=== PATIENT | male | born 1940 | race Caucasian/White ===

== ENCOUNTER → 2024-04-01 11:04 | Outpatient (BNVA) | payer MEDICARE, BC, SELFPAY | PROVIDERS: Visit Provider Orthopaedic Surgery | DX: M17.11 Unilateral primary osteoarthritis, right knee (principal) | CPT/HCPCS: 20610; 99212; J2003; J7318 ==

== ENCOUNTER 2024-07-01 11:00 | Outpatient (AMB) | payer MEDICARE, SELFPAY ==
--- NOTE | 2024-07-01 11:07 | MHC.OFFVIS ---
Vital Signs 07/01/24 11:09 Height 5 ft 8 in Weight 205 lb BMI 31.2 Intake Visit Reasons: Right knee pain Intake Note: Say is an 84 year old male who presents with complaints of progressively worsening right knee pain. He describes his pain as sharp in nature. He has had both cortisone injections and viscosupplementation injections given into his right knee which gave him temporary relief. He did undergo left total knee replacement surgery several years ago. He wishes to hold off on right total knee replacement surgery for as long as possible. He has tried Tylenol and anti-inflammatory medicines which gave him minimal relief. At this point his right knee pain is interfering with his activities of daily living and his ability to sleep well through the night. Allergies No Known Allergies Allergy (Verified 04/08/24 10:39) Medication List - Last Reconciled 07/01/24 by Marcos Galdamez MD acetaminophen (Tylenol) 325 mg PO QID PRN amlodipine 10 mg PO DAILY latanoprost 0.005% drps ophthalmic (eye) lisinopril 40 mg PO DAILY rosuvastatin 40 mg PO DAILY sertraline 50 mg PO DAILY [facility] Surgical History (Updated 04/08/24 @ 10:39 by Briana Garcia) Hx of left knee surgery (~2018) Social History (System 04/08/24 @ 10:39 by Briana Garcia) Patient Tobacco Use Status: Never used Tobacco Current occupational status: retired Physical Exam Vital Signs: BMI result Body Mass Index 31.2 Const Other: Well-nourished well-developed very friendly male awake alert and oriented x3 in no acute distress Extrem Other: Bilateral lower extremity examination shows good capillary refill, no skin lesions noted, normal sensation light touch Right knee examination shows a minimal effusion, palpable crepitus with range of motion, pain with range of motion, no instability Office Procedures AMB Joint Injection/Aspiration Joint Injection/Aspiration Primary Site: right knee Prep: site was prepped using aseptic technique Injected: 40 mg of, DepoMedrol and 1% plain lidocaine Procedure: The patient tolerated the procedure well Coding 17584 - Large joint Procedure code (CPT) selection complete Results Reviewed Results Reviewed: X-rays of the patient's right knee taken previously show joint space narrowing, subchondral sclerosis, no acute bony abnormalities Assessment & Plan Assessment & Plan (1) Osteoarthritis of right knee: Code(s): M17.11 - Unilateral primary osteoarthritis, right knee Category: Medical (2) Right knee pain: Code(s): M25.561 - Pain in right knee Category: Medical Plan Mr. Schulz presents with right knee pain due to osteoarthritis. The risks and benefits of a right knee cortisone injection were discussed at length with the patient. The patient wished to proceed. He tolerated the injection well. If he does not get lasting relief from the cortisone injection therapy I will see whether or not his insurance company will cover a another viscosupplementation injection such as Durolane. I will see him back once the injection is available. Feel free to call me at any time should questions regarding his orthopedic management arise. I spent 21 minutes in reviewing the patient's records and imaging studies, seeing the patient and documenting in the medical record. Orders: Orders AMB Joint Injection/Aspiration Today M17.11 - Unilateral primary osteoarthritis, right knee Coding Level of Care Code Est Pt Level 3 (56683) Complex EM visit Add On G2211 Diagnoses Osteoarthritis of right knee M17.11 Right knee pain M25.561 CPT Codes Coding - 55097 Large joint: 07426 - Large joint ([id number])
[2024-07-01 11:09] VITALS: BMI 31.2
--- OUTSIDE RECORDS SUMMARY | 2024-07-01 11:51 | XMS_ITS | Encounter Summary ---
Author Organization [facility] Address [address] [place] [address] Care Team Providers Care Instructional Support Technician Name Role Phone Unavailable Primary Care Provider Unavailabl e Encounter Details Date Type Department Care Team (Latest Contact Info) Description 05/11/2020 Lab Requisition [facility] [address] Through [address] [place] [address] [address] [place] [address] Adalberto Saucedo MD [address] [place], [place] [id number] Encounter for laboratory testing for COVID-19 virus Social History Tobacco Use Types Packs/Day Years Used Date Smoking Tobacco: Never Assessed Sex and Gender Information Value Date Recorded Sex Assigned at Not on file Legal Sex Male 11:43 AM EDT Gender Identity Not on file Sexual Orientation Not on file documented as of this encounter Plan of Treatment Not on file documented as of this encounter Procedures Procedure Name Priority Date/Time Associated Diagnosis Comments COVID-19 (SARS-COV-2) LILO Routine 05/11/2020 10:52 AM EDT Encounter for laboratory testing for COVID-19 virus [ICD-10-CM] documented in this encounter Results * COVID-19 (SARS-CoV-2), LILO (In-House) (05/11/2020 10:52 AM EDT) SARS CoV 2 Not Detected Not Detected 05/11/2020 2:27 PM EDT [facility] Comment: Negative results do not preclude SARS-CoV-2 (COVID-19)infection and should not be used as the sole basis for treatment or other patient management decisions. The SARS-CoV-2 (Covid-19) Nucleic Acid Amplification Assay is limited to laboratories certified under the Clinical Laboratory Improvement Amendments of 1988 (CLIA), 42 U.S.C. 263a, to perform high complexity tests. Nucleic acid amplication tests include RT-PCR and TMA. This assay has not been FDA cleared or approved, however, this assay has been authorized by the Food and Drug Administration (FDA) under an Emergency Use Authorization (EUA). ??Validation was completed and performance characteristics established by [facility] as per the FDA and CLIA requirement for this EUA. The Aptima SARS-CoV-2 assay Letter of Authorization, along with the authorized Fact Sheet for Healthcare Providers, the authorized Fact Sheet for Patients, and authorized labeling are available on the FDA website: https://www.fda.gov/medical-devices/fceqfxfrm-fhevzzamje-ddtwesn-devices/emergen -us y-ouvtagmhbcfmfi-rxivpmo-devices. Performed at [facility], [place], [place] ??[place] License [id number] ??CLIA [id number] Source Nasopharyngeal 05/11/2020 2:27 PM EDT [facility] Comment:Performed at [facility], [place], [place] license No. [id number] CLIA No. [id number] Microbiology Nasopharyngeal swab / Unknown 05/11/2020 10:52 AM EDT 05/11/2020 10:52 AM EDT us Adalberto Saucedo MD MICROBIOLOGY - GENERAL ORDER KAMINI Final Result [facility] [address] [place] [address] documented in this encounter Visit Diagnoses Diagnosis Encounter for laboratory testing for COVID-19 virus documented in this encounter
== END 2024-07-01 11:36 | disposition home or self-care (01) ==
LOC: HO.HOS 11:00
PROVIDERS: Visit Provider Orthopaedic Surgery
DX: M17.11 Unilateral primary osteoarthritis, right knee (principal); M25.561 Pain in right knee
CPT/HCPCS: 20610; 99213

== ENCOUNTER → 2024-07-01 11:00 | Outpatient (BNVA) | payer MEDICARE, SELFPAY | PROVIDERS: Visit Provider Orthopaedic Surgery | DX: M17.11 Unilateral primary osteoarthritis, right knee (principal); Z96.652 Presence of left artificial knee joint | CPT/HCPCS: 20610; 99212; J1010; J2003 ==

== ENCOUNTER 2024-09-10 09:20 | Outpatient (AMB) | payer MEDICARE, SELFPAY ==
--- NOTE | 2024-09-10 09:28 | A.OFFVIS_ITS ---
Vital Signs 09/10/24 09:38 Height 5 ft 8 in BP 140/70 H Blood Pressure Location Rt brachial Position Sitting Pulse 64 Pulse Source Pulse Oximeter Pulse Oximetry (%) 98 Oxygen Delivery Method Room Air Intake Visit Reasons: ENP - Tremors Intake Note: NPV referred by PCP for tremors Shear Grinder Operator Required: No Accompanied by: Spouse Allergies atorvastatin Allergy (Mild, Verified 09/10/24 09:37) Abdominal Pain calcium Allergy (Mild, Verified 09/10/24 09:37) Abdominal Pain nortriptyline Allergy (Mild, Verified 09/10/24 09:37) Insomnia rosuvastatin Allergy (Mild, Verified 09/10/24 09:37) Abdominal Pain HPI Comments Details: 84y/o Right handed male comes for evaluation of tremors He has h/o restless legs for many years but the hand tremors L>R started about 1 year ago . The tremors are when he tries to sleep . He has to get up and walk it out . No tremors during daytime No neck pain or back pain . He has h/o vertigo since 2005 . 2 weeks ago he had another episode of vertigo - started meclizine and it resolved. He had a fall related to vertigo. No change in speech , denies drooling , no difficulty with fork and knife, no difficulty dressing , bathing etc. No h/o head injury No exposure to pesticides or antipsychotics No fh/o tremors [facility] Medical History (Updated 09/10/24 @ 10:35 by Yamila Gupta MD) Coarse tremors Restless legs syndrome (RLS) RLS (restless legs syndrome) Glaucoma Benign colon polyp Herpes zoster History of varicella as a child High blood pressure High cholesterol Surgical History History of melanoma excision H/O inguinal hernia repair H/O prostate biopsy History of cervical spinal surgery Hx of colonoscopy Hx of left knee surgery (~2018) Social History Patient Tobacco Use Status: Never used Tobacco Current occupational status: retired Physical Exam Vital Signs: Last Vital Signs Pulse 64 09/10/24 09:38 BP 140/70 H 09/10/24 09:38 Pulse Ox 98 09/10/24 09:38 Oxygen Delivery Method Room Air 09/10/24 09:38 Const General: cooperative, healthy appearing, comfortable and no acute distress Nutritional Appearance: overweight Orientation/consciousness: patient oriented x3 Eyes Pupils: Equal, round and reactive pupils present Neuro Other: No tremors Mild teofilo cog wheel rigidity Normal FFM and foot taps Gait- normal stride, mild stoop, good turning good arm swings Good facial expression and blink Voice normal General: patient oriented x3, tone normal, moves all extremities and no focal motor deficits Cranial nerves: Yes Equal, round and reactive pupils present, Yes Bilaterally intact EOM present, Yes Nystagmus not present, Yes Normal facial strength present, Yes Midline tongue present, Yes Symmetric palate elevation present and Yes Ability to bilaterally elevate shoulders present Cognition (Neuro): normal cognition Motor exam (neuro): 5/5 motor strength present throughout and Normal motor muscle tone present throughout Deep tendon reflexes (DTR's): Right triceps reflex intensity grade: 2+, Left triceps reflex intensity grade: 2+, Rt Biceps (C5, C6): 2+, Left biceps reflex intensity grade: 2+, Right brachioradialis reflex intensity grade: 2+, Left brachioradialis reflex intensity grade: 2+, Right patellar reflex intensity grade: 2+ and Left patellar reflex intensity grade: 2+ Coordination: dqoanr-af-stad test normal Assessment & Plan Assessment & Plan (1) Coarse tremors: Comment: present only when he is in bed - resolves with walking ? RLS Code(s): G25.2 - Other specified forms of tremor Category: Medical (2) Restless legs syndrome (RLS): Code(s): - Restless legs syndrome Category: Medical Plan I will check hsi MRI brain from [place] check Ferritin CBC CMP Vit D Vit B 12 etc Will consider gabapentin if the tremors does not resolve and affects his sleep No evidence of parkinsons on todays exam Orders: Orders Vitamin B12 and Folate Today - Restless legs syndrome Ferritin Today - Restless legs syndrome Erythrocyte Sedimentation Rate Today - Restless legs syndrome TSH reflex Free T4 Today - Restless legs syndrome Vitamin D 25-OH (D2 and D3) Today - Restless legs syndrome Comprehensive Met. Panel Today - Restless legs syndrome Complete Blood Count Auto Diff Today - Restless legs syndrome Coding Level of Care Code New Pt Level 4 (18380) Complex EM visit Add On G2211 Diagnoses Coarse tremors G25.2 Restless legs syndrome (RLS) G25.81
[2024-09-10 09:38] VITALS: BP 140/70; PULSE 64; O2SAT 98
--- OUTSIDE RECORDS SUMMARY | 2024-09-10 09:39 | XMS_ITS | Encounter Summary ---
Author Organization [facility] Address [address] [place] [address] Care Team Providers Care Gas Main And Line Fitter Name Role Phone Unavailable Primary Care Provider Unavailabl e Encounter Details Date Type Department Care Team (Latest Contact Info) Description [facility] [address] [place] [address] [address] [place] [address] Adalberto Saucedo MD [address] [place], [place] [phone] Encounter for laboratory testing for COVID-19 virus [...] Detected Not Detected 05/11/2020 2:27 PM EDT [facility] Comment: Negative results do [...] (FDA) under an Emergency Use Authorization (EUA). Validation was completed and performance characteristics established by [facility] as per the FDA and CLIA requirement for this EUA. The Aptima SARS-CoV-2 assay Letter of Authorization, along with the authorized Fact Sheet for Healthcare Providers, the authorized Fact Sheet for Patients, and authorized labeling are available on the FDA website: https://www.fda.gov/medical-devices/twpjwpdzb-unbrivgkof-avvsxbn-devices/emergen -us b-amnughxbnbgqmd-tcecwwp-devices. Performed at [facility], [place], [place] License 0385 CLIA [id number] Source Nasopharyngeal 05/11/2020 2:27 PM EDT [facility] Comment:Performed at [facility], [place] license No. [id number] CLIA No. [id number] Microbiology Nasopharyngeal swab / Unknown 05/11/2020 10:52 AM EDT 05/11/2020 10:52 AM EDT us Adalberto Saucedo MD MICROBIOLOGY - GENERAL ORDER KAMINI Final Result [facility] [address] [place] [address] documented in this encounter Visit Diagnoses Diagnosis Encounter for laboratory testing for COVID-19 virus documented in this encounter
--- OUTSIDE RECORDS SUMMARY | 2024-09-10 09:42 | XMS_ITS | Clinical Summary ---
Author Organization [facility] Address [address] [facility] [place] [address] Phone Care Team Providers Care Macerator Operator Name Role Phone JanaydaniaKelsey Grissom DO Primary Care Pro vider Allergies No known active allergies Medications sertraline (ZOLOFT) 50 mg tablet Take 1 tablet (50 mg total) by mouth 1 (one) time each day. Active lisinopril (PRINIVIL,ZEST RIL) 40 mg tablet Take 1 tablet (40 mg total) by mouth 1 (one) time each day. Active amLODIPine (NORVASC) 10 mg tablet Take by mouth 1 (one) time each day. Active albuterol HFA (PROAIR HFA ; PROVENTIL HFA ; VENTOLIN HFA) 90 mcg/actuation inhaler Inhale 2 puffs by mouth every 6 (six) hours if needed for wheezing. Active rosuvastatin (CRESTOR) 40 mg tablet Take 1 tablet (40 mg total) by mouth 1 (one) time each day. Active latanoprost (XALATAN) 0.005 % ophthalmic solution Administer 1 drop into both eyes at bedtime. at bedtime 5 Active cholecalcifero l (VITAMIN D-3) 25 mcg (1,000 unit) tablet Take 1 tablet (1,000 Units total) by mouth 1 (one) time each day. 08/27/19 25 Discontinu ed(Discont inued by another clinician) Active Problems Problem Noted Date Diagnosed Date SOB (shortness of breath) 08/26/2024 Assessment & Plan (08/26/2024 11:31 AM EDT): Likely caused by COPD. Given the nondiagnostic stress echo 3 years ago and risk factors, will schedule nuclear perfusion stress test, either by exercise or regadenoson. Orders: Exercise nuclear stress test with myocardial perfusion; Future Dizziness 08/26/2024 Assessment & Plan (08/26/2024 11:31 AM EDT): Likely from dehydration. Symptom has improved with drinking more fluid. Suggest him to check blood pressure and pulse with recurrent symptoms. Aortic valve stenosis 03/10/2024 Assessment & Plan (08/26/2024 11:31 AM EDT): Aortic stenosis was mild. Will repeat echocardiogram in a year. Orders: ECG 12 lead Assessment & Plan (03/10/2024 1:45 PM EST): The aortic valve stenosis is in mild range only. Will continue monitor this. Primary hypertension 03/10/2024 Assessment & Plan (03/10/2024 1:49 PM EST): Well-controlled. Hyperlipidemia 03/10/2024 Assessment & Plan (03/10/2024 1:50 PM EST): He is on high-dose statin. Encounters Date Type Department Care Team Description 09/03/2024 9:49 AM EDT - 09/03/2024 11:59 PM EDT Hospital Encounter [facility] MRI [address] [place] [id number] Dizziness and giddiness Discharge Disposition: Home or Self Care 08/26/2024 10:50 AM EDT Office Visit [facility] [address] [place] [phone] Reggie Cole MD Nonrheumatic aortic valve stenosis (Primary Dx); SOB (shortness of breath); Dizziness from Last 3 Months Social History Tobacco Use Types Packs/Day Years Used Date Smoking Tobacco: Former Cigarettes Smokeless Tobacco: Never Tobacco Cessation:Counseling Given: Not Answered Alcohol Use Standard Drinks/Week Comments Yes 0 (1 standard drink = 0.6 oz pur e alcohol) wine Sex and Gender Information Value Date Recorded Sex Assigned at Male 03/26/2024 10:17 AM EST Legal Sex Male 11:14 PM EST Gender Identity Male 03/26/2024 10:17 AM EST Sexual Orientation Straight 03/26/2024 10 :17 AM EST Obstetrics History Last Filed Vital Signs Vital Sign Reading Time Taken Comments Blood Pressure 130/74 08/26/2024 10:43 AM EDT Pulse 73 08/26/2024 10:43 AM EDT Temperature - - Respiratory Rate - - Oxygen Saturation 96% 08/26/2024 10:43 AM EDT Inhaled Oxygen Concentration - - Weight 87.5 kg (193 lb) 08/26/2024 10:43 AM EDT Height 175.3 cm (5' 9 ) 08/26/2024 10:43 AM EDT Body Mass Index 28.5 08/26/2024 10:43 AM EDT Plan of Treatment Upcoming Encounters Date Type Department Care Team (Late st Contact Info) Description 09/17/2024 9:00 AM EDT Ancillary Procedure [facility] [address] [facility] [address] [place] [address] Health Maintenance Due Date Last Done Comments DTaP,Tdap,and Td Vaccines (1 - Tdap) 1959 Pneumococcal Vaccine: 50+ Years (1 of 1 - PCV) 02/21/1992 RSV Immunization Adult Patients (1 - 1-dose 75+ series) 2017 Cholesterol Screening (Lipid Panel) 01/08/2022 Falls Risk Assessment 01/08/2022 Medicare Annual Wellness Visit 01/08/2022 Social Influencers of Health Screening 01/08/2022 COVID-19 Vaccine (4 - 2023-2 5 season) 2023 03/01/2021, 04/04/2020, 03/13/2020 Depression Screening 02/06/2024 Hypertension/CHF/CAD Annual BMP Blood Test 03/10/2024 Influenza Vaccine (#1) 2024 3, 12/07/2020 Zoster Vaccines Completed 08/13/2023, 05/21/2023 HIB Vaccines Aged Out No longer eligi ble based on patient's age to complete this topic HPV Vaccines Aged Out No longer eligi ble based on patient's age to complete this topic Hepatitis A Vaccines Aged Out No long er eligible based on patient's age to complete this topic Hepatitis B Vaccines Aged Out No long er eligible based on patient's age to complete this topic IPV Vaccines Aged Out No longer eligi ble based on patient's age to complete this topic MMR Vaccines Aged Out No longer eligi ble based on patient's age to complete this topic Meningococcal ACWY Vaccine Aged Out N o longer eligible based on patient's age to complete this topic Meningococcal B Vaccine Aged Out No l onger eligible based on patient's age to complete this topic RSV Immunization Patients Under 20 months Aged Out No longer eligible b ased on patient's age to complete this topic Varicella Vaccines Aged Out No longer eligible based on patient's age to complete this topic Procedures Procedure Name Priority Date/Time Associated Diagnosis Comments MR BRAIN WO AND W CONTRAST Routine 09/03/2024 11:46 AM EDT Dizziness and giddiness ECG 12-LEAD Routine 08/26/2024 10:50 AM EDT Nonrheumatic aortic valve stenosis from Last 3 Months Results * MR Brain wo and w Contrast (09/03/2024 11:46 AM EDT) Anatomical Region Laterality Modality Head and Neck Magnetic Resonan ce 09/03/2024 2:20 PM EDT Impressions 09/03/2024 3:32 PM EDT No acute findings or abnormal intracranial enhancement. Moderate chronic small vessel ischemic change throughout the supratentorial and pontine white matter. Mild diffuse cerebral volume loss. -------- FINAL REPORT -------- Dictated By: ELIO AGUDELO Dictated Date: 09/03/2024 14:20 ET Assigned Physician: ELIO AGUDELO Reviewed and Electronically Signed By: ELIO AGUDELO Signed Date: 09/03/2024 15:32 ET Workstation ID: [id number] Transcribed By: Self Edit Transcribed Date: 09/03/2024 14:20 ET Narrative 09/03/2024 3:32 PM EDT PROCEDURE: Brain MRI INDICATION: Dizziness TECHNIQUE: Multiplanar, multisequence MRI of the brain without and with contrast. 18 mL Dotarem injected intravenously without complication from a 20 mL vial with the remainder discarded. COMPARISON: No priors available. FINDINGS: No acute infarct, mass effect, or intracranial hemorrhage. Moderate chronic small vessel ischemic changes seen throughout the supratentorial and pontine white matter. Mild diffuse cerebral volume loss with prominence of ventricles, sulci, and cisterns. No hydrocephalus. Sella and foramen magnum are normal. Major intracranial arterial flow voids are within normal limits. Major dural venous sinuses enhance normally with contrast. No abnormal intracranial enhancement or susceptibility artifact. Scattered mucosal thickening seen throughout the sinuses. Mastoid air cells are clear. Bilateral lens implants. Orbits and extra cranial soft tissues are otherwise within normal limits. Calvarium is normal. Procedure Note Elio Agudelo MD - 09/03/2024 PROCEDURE: Brain MRI INDICATION: Dizziness TECHNIQUE: Multiplanar, multisequence MRI of the brain without and withcontrast. 18 mL Dotarem injected intravenously without complication froma 20 mL vial with the remainder discarded. COMPARISON: No priors available. FINDINGS: No acute infarct, mass effect, or intracranial hemorrhage. Moderate chronic small vessel ischemic changes seen throughout thesupratentorial and pontine white matter. Mild diffuse cerebral volume loss with prominence of ventricles, sulci,and cisterns. No hydrocephalus. Sella and foramen magnum are normal. Major intracranial arterial flow voids are within normal limits. Majordural venous sinuses enhance normally with contrast. No abnormal intracranial enhancement or susceptibility artifact. Scattered mucosal thickening seen throughout the sinuses. Mastoid aircells are clear. Bilateral lens implants. Orbits and extra cranial soft tissues areotherwise within normal limits. Calvarium is normal. IMPRESSION: No acute findings or abnormal intracranial enhancement. Moderate chronic small vessel ischemic change throughout thesupratentorial and pontine white matter. Mild diffuse cerebral volume loss. -------- FINAL REPORT -------- Dictated By: ELIO AGUDELO Dictated Date: 09/03/2024 14:20 ET Assigned Physician: ELIO AGUDELO Reviewed and Electronically Signed By: ELIO AGUDELO Signed Date: 09/03/2024 15:32 ET Workstation ID: [id number] Transcribed By: Self Edit Transcribed Date: 09/03/2024 14:20 ET us Kelsey Marcin DO IMG MRI PROCEDURE S Final Result * ECG 12 lead (08/26/2024 10:50 AM EDT) Ventricular Rate ECG 73 BPM GEMUSE Atrial Rate 73 BPM GEMUSE P-R Interval 186 ms GEMUSE QRS Duration 106 ms GEMUSE Q-T Interval 398 ms GEMUSE QTc 438 ms GEMUSE P Wave [place] 74 degrees GEMUSE R [place] -16 degrees GEMUSE T [place] 83 degrees GEMUSE ECG Interpretation Normal sinus rhythm Non-specific intra-ventric ular conduction block No previous ECGs available Confirmed by Sebas COLE YUFENG ([id number]) on 08/26/2024 11:28:01 AM GEMUSE 08/26/2024 10:5 0 AM EDT 08/26/2024 11:28 AM EDT us Reggie Cole MD ECG ORDERABLES Final Result GEMUSE from Last 3 Months Insurance MEDICARE [facility] Care Teams Macerator Operator Relationship Specialty Start Date End Date Kelsey Burch DO [address] [address] PCP - General Internal Medicine 02/28/24
--- OUTSIDE RECORDS SUMMARY | 2024-09-10 09:42 | XMS_ITS | Encounter Summary ---
Author Organization [facility] Address [address] [facility] [address] [place] [phone] Phone Care Team Providers Care Planning Technician Name Role Phone Unknown, Unknown Primary Care Provider Grant Lyn DO Primary Care Provider [phone] Encounter Details Date Type Department Care Team (Late st Contact Info) Description 07/09/2019 Procedure Pass BWF Periop 6th floor [address] [place] [address] Social History Tobacco Use Types Packs/Day Years Used Date Smoking Tobacco: Former Smokeless Tobacco: Never Comments:Quit 22 years ago p er pt Sex and Gender Information Value Date Recorded Sex Assigned at Male 08/02/2019 8:38 AM EDT Legal Sex Male 8:52 AM EST Gender Identity Male 08/02/2019 8:38 AM EDT Sexual Orientation Straight 08/02/2019 8 :38 AM EDT documented as of this encounter Plan of Treatment Not on file documented as of this encounter Visit Diagnoses Not on filedocumented in this encounter Care Teams Planning Technician Relationship Specialty Start Date End Date Unknown, Unknown, PCP - General 04/29/19 08/06/19 Grant Coronado DO [address] [place] [id number] PCP - General Internal Medicine 08/07/19 documented as of this encounter Additional Source Comments The information contained in this document represents components of the legal health record. It is not the complete legal health record.[facility]
== END 2024-09-10 10:23 | disposition home or self-care (01) ==
LOC: HO.HSMS 09:20
PROVIDERS: Visit Provider Psychiatry & Neurology Neurology
DX: G25.2 Other specified forms of tremor (principal); G25.81 Restless legs syndrome
CPT/HCPCS: 99204; G2211

== ENCOUNTER → 2024-09-10 09:20 | Outpatient (BNVA) | payer MEDICARE, SELFPAY | PROVIDERS: Visit Provider Psychiatry & Neurology Neurology | DX: G25.2 Other specified forms of tremor (principal); G25.81 Restless legs syndrome | CPT/HCPCS: 99202 ==

== ENCOUNTER 2024-10-01 10:58 | Outpatient (AMB) | payer MEDICARE, SELFPAY ==
--- OUTSIDE RECORDS SUMMARY | 2024-09-30 14:00 | XMS_ITS | Encounter Summary ---
Author Organization [facility] Address [address] [place] [address] Care Team Providers Care Industrial Gas Fitter Helper Name Role Phone ViktoriaKelsey Grissom DO Primary Care Pro vider Reason for Visit * Reason Comments Follow-up Encounter Details Date Type Department Care Team (Latest Contact Info) Description 09/30/2024 2:00 PM EDT Office Visit [facility] [address] [place] [address] Reggie Cole MD [address] [place] [address] [place] [address] Coronary artery disease of [place] artery of [place] heart with stable angina pectoris (CMS/HCC V24) (Primary Dx); Nonrheumatic aortic valve stenosis; Primary hypertension; Hyperlipidemia, unspecified hyperlipidemia type Social History Tobacco Use Types Packs/Day Years Used Date Smoking Tobacco: Former Cigarettes Smokeless Tobacco: Never Alcohol Use Standard Drinks/Week Comments Yes 0 (1 standard drink = 0.6 oz pur e alcohol) wine Sex and Gender Information Value Date Recorded Sex Assigned at Male 03/26/2024 10:17 AM EST Legal Sex Male 11:14 PM EST Gender Identity Male 03/26/2024 10:17 AM EST Sexual Orientation Straight 03/26/2024 10 :17 AM EST documented as of this encounter Last Filed Vital Signs Vital Sign Reading Time Taken Comments Blood Pressure 126/84 09/30/2024 1:53 PM EDT Pulse 67 09/30/2024 1:53 PM EDT Temperature - - Respiratory Rate - - Oxygen Saturation 96% 09/30/2024 1:53 PM EDT Inhaled Oxygen Concentration - - Weight 91.5 kg (201 lb 12.8 oz) 09/30/2024 1:53 PM EDT Height 174 cm (5' 8.5 ) 09/30/2024 1:53 PM EDT Body Mass Index 30.24 09/30/2024 1:53 PM EDT documented in this encounter Ordered Prescriptions Prescription Sig Dispense Quantity Refills Last Filled Start Date End Date nitroglycerin (NITROSTAT) 0.[address] 1 tablet (0.4 mg total) under the tongue every 5 (five) minutes if needed for chest pain. May repeat dose every 5 minutes for up to 3 doses total. 25 tablet 09/30/2024 documented in this encounter Progress Notes * Reggie Cole MD - 09/30/2024 2:00 PM EDTAssociated Problem(s): Coronary artery disease of [place] artery of [place] heart with stable angina pectoris ([facility] V24) He has infrequent chest discomfort with walking upstairs. Perfusion images shows quite significant ischemia in LAD territory. I will propose to do a cardiac catheterization with possible PCI. I have reviewed the procedure with patient and his , risk and benefit. He will proceed with cath with potential PCI. * Reggie Cole MD - 09/30/2024 2:00 PM EDTAssociated Problem(s): Aortic valve stenosis Aortic valve stenosis was mild years ago. Will continue to monitor. * Reggie Cole MD - 09/30/2024 2:00 PM EDTAssociated Problem(s): Primary hypertension Well-controlled * Reggie Cole MD - 09/30/2024 2:00 PM EDTAssociated Problem(s): Hyperlipidemia Well-controlled. * Reggie Cole MD - 09/30/2024 2:00 PM EDT PCP: Kelsey Burch DO HPI: The patient is an 84-year-old male who presents for follow up of CAD with abnormal stress test. He is accompanied by his . He reports experiencing shortness of breath with overexertion, particularly when ascending stairs. This symptom has been present for approximately one year. He does not experience any chest pain. He maintains an active lifestyle, engaging in walking exercises during favorable weather conditions. Hehas been using an inhaler intermittently for the past year, which provides some relief. His pulmonary function test demonstrated moderate COPD. Echocardiogram from October 2023 demonstrated normal biventricular size and systolic function, mild aortic valve stenosis. He also had stress echo in [facility] cardiology office back to 2021 and the study was reported to be technically difficult. He underwent pharmacological nuclear stress test after last office visit and perfusion images demonstrate medium size, mostly reversible defect, in LAD territory, consistent with ischemia. Per his , he does have chest pressure with shortness of breath while walking upstairs. Per patient, the chest pressure was quite seldom. But he is also not very active due to the knee problem. Hehad no resting chest discomfort. ROS: All pertinent review of systems as stated in HPI otherwise reviewed and are negative. PAST MEDICAL HISTORY: Patient Active Problem List Diagnosis Date Noted SOB (shortness of breath) 08/26/2024 Dizziness 08/26/2024 Aortic valve stenosis 03/10/2024 Primary hypertension 03/10/2024 Hyperlipidemia 03/10/2024 ACTIVE MEDICATIONS: Outpatient Medications Marked as Taking for the 09/30/24 encounter (Office Visit) with Reggie Cole MD Medication Sig Dispense Refill albuterol HFA (PROAIR HFA ; PROVENTIL HFA ; VENTOLIN HFA) 90 mcg/actuation inhaler Inhale 2 puffs by mouth every 6 (six) hours if needed for wheezing. amLODIPine (NORVASC) 10 mg tablet Take by mouth 1 (one) time each day. aspirin 81 mg EC tablet Take 1 tablet (81 mg total) by mouth 1 (one) time each day. latanoprost (XALATAN) 0.005 % ophthalmic solution Administer 1 drop into both eyes at bedtime. at bedtime lisinopril (PRINIVIL,ZESTRIL) 40 mg tablet Take 1 tablet (40 mg total) by mouth 1 (one) time each day. rosuvastatin (CRESTOR) 40 mg tablet Take 1 tablet (40 mg total) by mouth 1 (one) time each day. sertraline (ZOLOFT) 50 mg tablet Take 1 tablet (50 mg total) by mouth 1 (one) time each day. ALLERGIES: No Known Allergies PHYSICAL EXAM: Vitals: 09/30/24 1353 BP: 126/84 Pulse: 67 SpO2: 96% Weight: 91.5 kg (201 lb 12.8 oz) Height: 1.74 m (68.5 ) Physical Exam APPEARANCE: Alert and in no acute distress EYES: PERRLA, conjunctiva and sclera normal. NECK: Neck supple, thyroid symmetric and of normal size HEART: RRR with normal S1 and S2, 2/6 systolic murmur at right upper sternal border, no gallops, noJVD appreciated LUNG: clear to auscultation in all robertson ABDOMEN: Bowel sounds normoactive, soft, non-tender, without organomegaly or palpable masses EXTREMITIES: Extremities warm and well perfused without clubbing, cyanosis, or edema NEURO: Awake, alert and oriented SKIN: Skin color, texture, turgor normal. No rashes or lesions. MUSCULOSKELETAL: Gait normal TESTING: IMPRESSION: No diagnosis found. ASSESSMENT/PLAN: Assessment & Plan Coronary artery disease of [place] artery of [place] heart with stable angina pectoris (CMS/HCC V24) He has infrequent chest discomfort with walking upstairs. Perfusion images shows quite significant ischemia in LAD territory. I will propose to do a cardiac catheterization with possible PCI. I have reviewed the procedure with patient and his , risk and benefit. He will proceed with cath with potential PCI. Nonrheumatic aortic valve stenosis Aortic valve stenosis was mild years ago. Will continue to monitor. Primary hypertension Well-controlled Hyperlipidemia, unspecified hyperlipidemia type Well-controlled. The [facility] team will continue to co-manage this patient following the plan of care as established by my initial visit and as per AHA guidelines for ongoing management and surveillance of CAD, aortic valve stenosis . This will include medication titration, initiation of appropriate medications and further titration, and diagnostic studies to manage this disease process. Thank you for allowing us to participate in the care of this patient. The patient will follow up with Cardiology post cardiac catheterization. CC: @PCP documented in this encounter Plan of Treatment Not on file documented as of this encounter Visit Diagnoses Diagnosis Coronary artery disease of [place] artery of [place] heart with stable angina pectoris ([facility] V24)- Primary Nonrheumatic aortic valve stenosis Primary hypertension Unspecified essential hypertension Hyperlipidemia, unspecified hyperlipidemia type documented in this encounter Historical Medications * This list may reflect changes made after this encounter. aspirin 81 mg EC tablet Take 1 tablet (81 mg total) by mouth 1 (one) time each day. added in this encounter Care Teams Industrial Gas Fitter Helper Relationship Specialty Start Date End Date Kelsey Burch DO [address] [id number] PCP - General Internal Medicine 02/28/24 documented as of this encounter
--- NOTE | 2024-10-01 11:14 | MHC.OFFVIS ---
Vital Signs 10/01/24 11:20 Height 5 ft 8 in Weight 199 lb BMI 30.3 Intake Visit Reasons: Right knee pain Intake Note: Say is a 84 year old male who presents with complaints of progressively worsening right knee pain. He describes his pain as sharp in nature. He has failed the last 3 months of conservative treatment which has included Tylenol, anti-inflammatory medicines, physical therapy exercises and a home exercise program. The patient has had cortisone injections in the past. The most recent cortisone injection gave him minimal relief. He has also had Durolane viscosupplementation injections which gave him good relief. He wishes to hold off on surgery if at all possible. Allergies atorvastatin Allergy (Mild, Verified 10/01/24 11:20) Abdominal Pain calcium Allergy (Mild, Verified 10/01/24 11:20) Abdominal Pain nortriptyline Allergy (Mild, Verified 10/01/24 11:20) Insomnia rosuvastatin Allergy (Mild, Verified 10/01/24 11:20) Abdominal Pain Medication List - Last Reconciled 10/01/24 by Marcos Galdamez MD acetaminophen (Tylenol) 325 mg PO QID PRN amlodipine 10 mg PO DAILY aspirin (Rommel Low Dose Aspirin) 81 mg PO DAILY latanoprost 0.005% drps ophthalmic (eye) lisinopril 40 mg PO DAILY rosuvastatin 40 mg PO DAILY sertraline 50 mg PO DAILY [facility] Medical History (Updated 09/10/24 @ 10:35 by Yamila Gupta MD) Coarse tremors Restless legs syndrome (RLS) RLS (restless legs syndrome) Glaucoma Benign colon polyp Herpes zoster History of varicella as a child High blood pressure High cholesterol Surgical History History of melanoma excision H/O inguinal hernia repair H/O prostate biopsy History of cervical spinal surgery Hx of colonoscopy Hx of left knee surgery (~2018) Social History Patient Tobacco Use Status: Never used Tobacco Current occupational status: retired Physical Exam Vital Signs: BMI result Body Mass Index 30.3 Const Other: Well-nourished well-developed very friendly male awake alert and oriented x3 in no acute distress Extrem Other: Right knee examination shows a minimal effusion, palpable crepitus with range of motion, pain with range of motion, no instability Results Reviewed Results Reviewed: X-rays of the patient's right knee taken previously show joint space narrowing, subchondral sclerosis, no acute bony abnormalities Assessment & Plan Assessment & Plan (1) Right knee pain: Code(s): M25.561 - Pain in right knee Category: Medical (2) Osteoarthritis of right knee: Code(s): M17.11 - Unilateral primary osteoarthritis, right knee Category: Medical Plan Mr. Schulz presents with right knee pain due to osteoarthritis. I had a lengthy discussion with the patient regarding the treatment options. He wishes to hold off on surgery if at all possible. I agree with this plan. I will see if the patient's insurance company will cover another Durolane viscosupplementation injection. I will see him back once the injection is available. Feel free to call me at any time should questions regarding his orthopedic management arise. I spent 21 minutes in reviewing the patient's records and imaging studies, seeing the patient and documenting in the medical record. Coding Level of Care Code Est Pt Level 3 (60587) Complex EM visit Add On G2211 Diagnoses Right knee pain M25.561 Osteoarthritis of right knee M17.11
[2024-10-01 11:20] VITALS: BMI 30.3
--- OUTSIDE RECORDS SUMMARY | 2024-10-01 11:52 | XMS_ITS | Encounter Summary ---
Author Organization [facility] Address [address] [place] [address] Care Team Providers Care Cyber Intelligence Analyst Name Role Phone HirocornelKelsey Becerra DO Primary Care Pro vider Reason for Visit * Reason Onset Date Comments hospital procedure 10/01/2024 cath Encounter Details Date Type Department Care Team (Late st Contact Info) Description 10/01/2024 Telephone [facility] - [address] [facility] [address] [place] [address] Reggie Cole MD [address] [place] [address] [place] [address] Social History Tobacco Use Types Packs/Day Years [...] AM EST documented as of this encounter Progress Notes * Mar Hanley - 10/01/2024 10:08 AM EDT Spoke to patient to schedule cardiac cath, faxed worksheet to access. Will contact patient once confirmed and go over instructions. Patient aware of plan and will await my call. * Chela Alvarado - 10/01/2024 8:11 AM EDT No auth required for cpt code [id number] and [id number]. Ok to book * Mar Hanley - 10/01/2024 8:03 AM EDT Please obtain PA for L. Heart cath ? PCI [id number] and [id number] at [facility] with Dr Starks. DX I25.10 Thank You . documented in this encounter Plan of Treatment Not on file documented as of this encounter Visit Diagnoses Not on filedocumented in this encounter Care Teams Cyber Intelligence Analyst Relationship Specialty Start Date End Date Kelsey Burch DO [facility] [address] [place] [phone] PCP - General Internal Medicine 02/28/24 documented as of this encounter
--- OUTSIDE RECORDS SUMMARY | 2024-10-01 11:52 | XMS_ITS | Clinical Summary ---
Author Organization [facility] Address [address] [facility] [address] [place] [id number] Phone Care Team Providers Care Environmental Services Attendant Name Role Phone Cliff Grant Peters DO Primary Care Provider + [phone] Allergies No known active allergies Medications rosuvastatin (CRESTOR) 40 MG tablet Take 20 mg by mouth daily. 07/07/19 20 Active lisinopril (PRINIVIL,ZESTRIL) 30 MG tablet Take 30 mg by mouth daily. 07/07/19 20 Active amLODIPine (NORVASC) 10 MG tablet Take 10 mg by mouth daily. 06/07/19 20 Active ferrous sulfate 324 mg (65 mg telida iron) TbEC Take 324 mg by mouth daily with breakfast. Active acetaminophen (TYLENOL) 500 MG tablet Take 2 tablets (1,000 mg total) by mouth every 8 (eight) hours. 90 tablet 08/12/19 20 Active Additional Information Patient not taking.Reported on 11/18/2019 aspirin 81 MG EC tablet Take 1 tablet (81 mg total) by mouth 2 (two) times a day for 28 days. 56 tablet 08/12/19 20 Active docusate sodium (COLACE) 100 MG capsule Take 1 capsule (100 mg total) by mouth 2 (two) times a day. 60 capsule 08/12/19 20 Active Additional Information Patient not taking.Reported on 11/18/2019 gabapentin (NEURONTIN) 100 MG capsule Take 1 capsule (100 mg total) by mouth every 8 (eight) hours. Gabapentin 100mg three times a day for 3 days, then gabapentin 100mg twice a day for 3 days, then gabapentin 100mg daily for 3 days 20 capsule 08/12/19 Active Additional Information Patient not taking.Reported on 11/18/2019 HYDROmorphone (DILAUDID) 2 MG tablet Take 1-2 tablets (2-4 mg total) by mouth every 4 (four) hours as needed for pain (specific location in comments). Partial fill ok 30 tablet 08/12/19 Active Additional Information Patient not taking.Reported on 11/18/2019 naproxen (NAPROSYN) 500 MG tablet Take 1 tablet (500 mg total) by mouth 2 (two) times a day with meals for 14 days. 28 tablet 08/12/19 Active omeprazole (PRILOSEC) 20 MG capsule Take 1 capsule (20 mg total) by mouth daily before breakfast. For 4 weeks 30 capsule 08/13/19 Active Additional Information Patient not taking.Reported on 11/18/2019 senna (SENOKOT) 8.6 mg tablet Take 1-2 tablets by mouth 2 (two) times a day. 60 tablet 08/12/19 Active Additional Information Patient not taking.Reported on 11/18/2019 tamsulosin (FLOMAX) 0.4 mg Cap Take 1 capsule (0.4 mg total) by mouth nightly at bedtime. 10 capsule 08/15/19 Active Additional Information Patient not taking.Reported on 11/18/2019 traMADoL (ULTRAM) 50 mg tabletIndications: Status post total left knee replacement,Primar y localized osteoarthritis of left knee Take 1-2 tablets (50-100 mg total) by mouth every 8 (eight) hours as needed for severe pain. 20 tablet 10/01/19 Active Additional Information Patient not taking.Reported on 11/18/2019 naproxen sodium (ALEVE) 220 MG tablet Take 220 mg by mouth 2 (two) times a day with meals. Active ferrous sulfate (IRON ORAL) Take by mouth. Act darron Active Problems Problem Noted Date Diagnosed Date S/P TKR (total knee replacement) using cement, l eft 08/12/2019 S/P total knee replacement, left 08/11/2019 Hyperlipidemia 08/05/2019 Hypertension 08/05/2019 Primary osteoarthritis of left knee Social History Tobacco Use Types Packs/Day Years Used Date Smoking Tobacco: Former Cigarettes 1 20 0 02/21/1960 - 02/21/1980 Smokeless Tobacco: Never Comments:Quit 22 years ago p er pt Alcohol Use Standard Drinks/Week Comments Yes 5 (1 standard drink = 0.6 oz pur e alcohol) Education Answer Date Recorded Are you interested in more education? Not on jose alberto e 06/02/2022 Are you concerned about learning? Not on file 06/02/2022 No 06/02/2022 No 06/02/2022 Digital Access Answer Date Recorded No 07/01/2022 No 07/01/2022 No 07/01/2022 Reliable internet access at home? Not on file 07/01/2022 Device with a working camera? Not on file Sex and Gender Information Value Date Recorded Sex Assigned at Male 08/02/2019 8:38 AM EDT Legal Sex Male 8:52 AM EST Gender Identity Male 08/02/2019 8:38 AM EDT Sexual Orientation Straight 08/02/2019 8: 38 AM EDT Last Filed Vital Signs Vital Sign Reading Time Taken Comments Blood Pressure 142/76 08/27/2019 9:24 AM EDT Pulse 70 08/27/2019 9:24 AM EDT Temperature 36 C (96.8 F) 09/16/2020 2:41 PM EDT Respiratory Rate 14 08/27/2019 9:24 AM EDT Oxygen Saturation 97% 08/27/2019 9:24 AM EDT Inhaled Oxygen Concentration - - Weight 87.1 kg (192 lb) 09/16/2020 2:41 PM EDT Height 172.7 cm (5' 8 ) 09/16/2020 2:41 PM EDT Body Mass Index 29.19 09/16/2020 2:41 PM EDT Plan of Treatment Health Maintenance Due Date Last Done Comments Adult Td,Tdap Booster 1940 BLOOD PRESSURE 1940 PNEUMOCOCCAL VACCINES (50+ years) (1 of 1 - PCV) 02/21/1992 ZOSTER VACCINES (1 of 2) 02/21/1992 RSV VACCINE (1 - 1-dose 75+ series) 2017 CREATININE LEVEL 08/11/2020 08/12/2019, 08/07/2019, 02/18/2019 POTASSIUM LEVEL 08/11/2020 08/12/2019, 08/07/2019, 02/18/2019 DEPRESSION SCREENING 11/14/2020 11/15/2019 COVID-19 VACCINE (2023-2 5 season) 2023 04/04/2020, 03/13/2020 INFLUENZA VACCINE (#1) 2024 HEPATITIS A VACCINES Aged Out No long er eligible based on patient's age to complete this topic HIB VACCINES Aged Out No longer eligi ble based on patient's age to complete this topic MENINGOCOCCAL VACCINES (ACWY) Aged Out No longer eligible based on patient's age to complete this topic MENINGOCOCCAL VACCINES (B) Aged Out N o longer eligible based on patient's age to complete this topic Medical Devices Implanted Type Area Gauntlet Pairer Device Identifier Shelf Expiration Date Model / Serial / Lot Knee Implant [id number] Patellar Component Resurfacing Danielle Ii 06 - [id number] Implanted:Qty: 1 on 08/11/2019 by Lavell Wadsworth MD at [facility] Left: Knee HOLLAND 03/31/2029 [id number] / / [id number] Knee Insert 6 9mm Size 5 Danielle Ii Polyethylene Cruciate Retaining Cs/1bx/1ea - [id number] Implanted:Qty: 1 on 08/11/2019 by Lavell Wadsworth MD at [facility] Left: Knee HOLLAND 01/20/2028 [id number] / / [id number] Knee Baseplate Sz 5 Tibial Legion Ti Nonporous Cemented Male Tapered Lt - [id number] Implanted:Qty: 1 on 08/11/2019 by Lavell Wadsworth MD at [facility] STANDARD Left: Knee HOLLAND 08/13/2027 [id number] / / [id number] Cement Bone 40g Simplex P Demineralized Matrix Radiopaque Void Filler Full Dose Single Vial Bx/10ea - [id number] Implanted:Qty: 2 on 08/11/2019 by Lavell Wadsworth MD at [facility] Left: Knee [employer] 04/04/2021 [id number] / / [id number] Knee Insert Size 5 Femoral Head Legion Cruciate Narrow Left - [id number] Implanted:Qty: 1 on 08/11/2019 by Lavell Wadsworth MD at [facility] Left: Knee HOLLAND 03/11/2029 [id number] / / [id number] Procedures Procedure Name Priority Date/Time Associated Diagnosis Comments BASIC METABOLIC PANEL Routine 08/12/2019 7:33 AM EDT from Last 3 Months or Most Recently Relevant to Health Maintenance Results * (ABNORMAL) Basic metabolic panel (08/12/2019 7:33 AM EDT) SODIUM 135(L) 136 - 145 mmol/L [facility] CHLORIDE 98 98 - 107 mmol/L [facility] POTASSIUM 3.8 3.4 - 5.0 mmol/L [facility] CO2 26 22 - 31 mmol/L [facility] BUN 9 6 - 23 mg/dL [facility] CREATININE 0.76 0.50 - 1.20 mg/dL [facility] GLUCOSE 162(H) 70 - 115 mg/dL [facility] CALCIUM 9.0 8.6 - 10.7 mg/dL [facility] EGFR 88 >60 mL/min/1.7 3m2 [facility] Comment:Estimated glomerular filtration rate calculated using the CKD-EPI equation. ANION GAP 11 3 - 15 mmol/L [facility] Blood 08/12/2019 7:33 AM EDT 08/12/2019 7:43 AM EDT us Lavell Wadsworth MD LAB BLOOD ORDERABLES Final Re sult [address] [address] from Last 3 Months or Most Recently Relevant to Health Maintenance Insurance MEDICARE PART A & B [facility] MEDICARE SUPPLEMENT [place] MEDICARE PART A & B [facility] MEDICARE SUPPLEMENT MEDICARE PART A & B [employer] MEDICARE SUPPLEMENT [place], [place] MEDICARE PART A & B [employer] MEDICARE SUPPLEMENT MEDICARE PART A & B [employer] MEDICARE SUPPLEMENT [facility] Address: [facility] [id number] [place] [phone] MEDICARE PART A & B [employer] MEDICARE SUPPLEMENT MEDICARE PART A & B [employer] MEDICARE SUPPLEMENT MEDICARE PART A & B LAIE [employer] [facility] MEDICARE SUPPLEMENT MEDICARE PART A & B [employer] [facility] MEDICARE SUPPLEMENT [facility] Address: [facility] [id number] [place] [address] Advance Directives For more information, please contact: [phone] (9AM - 5PM [facility], Sunday-Sunday) * Full Code (Confirmed) (Latest Code Status on File) Date Activated Date Inactivated Comments 08/12/2019 8:03 AM Question Answer Comments Code Status Confirmed With: Patient * Full Code (Presumed) Date Activated Date Inactivated Comments 08/11/2019 11:46 AM 08/12/2019 8:03 AM * Full Code (Presumed) Date Activated Date Inactivated Comments 08/11/2019 6:03 AM 08/11/2019 11:46 AM Care Teams Environmental Services Attendant Relationship Specialty Start Date End Date Grant Coronado DO [address] [place] [address] PCP - General Internal Medicine 08/07/19 Additional Source Comments The information contained in this document represents components of the legal health record. It is not the complete legal health record.[facility]
--- OUTSIDE RECORDS SUMMARY | 2024-10-01 11:52 | XMS_ITS | Encounter Summary ---
Author Organization [facility] Address [address] [place] [address] Care Team Providers Care Anvilsmith Name Role Phone Unavailable Primary Care Provider Unavailabl e Encounter Details Date Type Department Care Team (Latest Contact Info) Description 05/11/2020 Lab Requisition [facility] COVID [address] Through [address] [place] [address] [address] [place] [address] Adalberto Saucedo MD [address] [place], [place] [id number] Encounter for laboratory testing for COVID-19 virus [...] Detected Not Detected 05/11/2020 2:27 PM EDT [facility] Comment: Negative results do not [...] was completed and performance characteristics established by [facility] as per the FDA and CLIA requirement for this EUA. The Aptima SARS-CoV-2 assay Letter of Authorization, along with the authorized Fact Sheet for Healthcare Providers, the authorized Fact Sheet for Patients, and authorized labeling are available on the FDA website: https://www.fda.gov/medical-devices/xazycyzqp-etluvigccd-enfvace-devices/emergen -us z-mucyawxkuvqtvo-vfrsipx-devices. Performed at [facility], [place], [place] License 0385 CLIA [id number] Source Nasopharyngeal 05/11/2020 2:27 PM EDT [facility] Comment:Performed at [facility], [facility], [place] license No. [id number] CLIA No. [id number] Microbiology Nasopharyngeal swab / Unknown 05/11/2020 10:52 AM EDT 05/11/2020 10:52 AM EDT us Adalberto Saucedo MD MICROBIOLOGY - GENERAL ORDER KAMINI Final Result [facility] [address] [place] [address] documented in this encounter Visit Diagnoses Diagnosis Encounter for laboratory testing for COVID-19 virus documented in this encounter
--- OUTSIDE RECORDS SUMMARY | 2024-10-01 11:52 | XMS_ITS | Encounter Summary ---
Author Organization [facility] Address [address] [place] [address] Phone Care Team Providers Care Lime Hide Inspector Name Role Phone Unknown, Unknown Primary Care Provider Grant Lyn DO Primary Care Provider Encounter Details Date Type Department Care Team (Late st Contact Info) Description 07/09/2019 Procedure Pass BWF Periop 6th floor [address] [place] [address] Social History Tobacco Use Types Packs/Day Years [...] on filedocumented in this encounter Care Teams Lime Hide Inspector Relationship Specialty Start Date End Date Unknown, Unknown, PCP - General 04/29/19 08/06/19 Grant Coronado DO [address] [place] [id number] PCP - General Internal Medicine 08/07/19 documented as of this encounter Additional Source Comments The information contained in this document represents components of the legal health record. It is not the complete legal health record.[facility]
--- OUTSIDE RECORDS SUMMARY | 2024-10-01 11:52 | XMS_ITS | Clinical Summary ---
Author Organization [facility] Address [address] [place] [address] Care Team Providers Care Job Press Feeder Name Role Phone Unavailable Primary Care Provider Unavailabl e Social History Tobacco Use Types Packs/Day Years Used Date Smoking Tobacco: Never Assessed Sex and Gender Information Value Date Recorded Sex Assigned at Not on file Legal Sex Male 11:43 AM EDT Gender Identity Not on file Sexual Orientation Not on file Plan of Treatment Health Maintenance Due Date Last Done Comments Advance Care Planning 1940 DTaP/Tdap/Td Vaccines (1 - Tdap) 1961 Pneumococcal Vaccines 50+ (1 of 1 - PCV) 02/21/1992 Zoster (Shingles) Vaccine (1 of 2) 02/21/1992 RSV Vaccine 60 years and old er and Patients (1 - 1-dose 75+ series) 2017 COVID-19 Vaccine ( - 2023-2 5 season) 2023 Influenza Vaccine 09/05/2024 Hepatitis B Vaccines Aged Out No long er eligible based on patient's age to complete this topic Insurance MEDICARE PART A & B
--- OUTSIDE RECORDS SUMMARY | 2024-10-01 11:52 | XMS_ITS | Clinical Summary ---
Author Organization [facility] Address [address] [facility] [place] [address] Phone Care Team Providers Care Cat Skinner Name Role Phone HiropérezPraveena Kelsey Primary Care Pro vider Allergies No known active allergies Medications sertraline (ZOLOFT) 50 mg tablet Take 1 tablet (50 mg total) by mouth 1 (one) time each day. Active lisinopril (PRINIVIL,ZESTR IL) 40 mg tablet Take 1 tablet (40 [...] eyes at bedtime. at bedtime 5 Active aspirin 81 mg EC tablet Take 1 tablet (81 mg total) by mouth 1 (one) time each day. Active nitroglycerin (NITROSTAT) 0.[address] 1 tablet (0.4 mg total) under the tongue every 5 (five) minutes if needed for chest pain. May repeat dose every 5 minutes for up to 3 doses total. 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 Perfusion images shows quite significant ischemia in LAD territory. I will propose to do a cardiac catheterization with possible PCI. I have reviewed the procedure with patient and his , risk and benefit. He will proceed with cath with potential PCI. SOB (shortness of breath) 08/26/2024 Assessment & [...] Aortic valve stenosis 03/10/2024 Assessment & Plan (09/30/2024 4:13 PM EDT): Aortic valve stenosis was mild years ago. Will continue to monitor. Assessment & Plan (08/26/2024 11:31 AM EDT): Aortic stenosis was mild. Will repeat echocardiogram in a year. Orders: ECG 12 lead Assessment & Plan (03/10/2024 1:45 PM EST): The aortic valve stenosis is in mild range only. Will continue monitor this. Primary hypertension 03/10/2024 Assessment & Plan (09/30/2024 4:13 PM EDT): Well-controlled Assessment & Plan (03/10/2024 1:49 PM EST): Well-controlled. Hyperlipidemia 03/10/2024 Assessment & Plan (09/30/2024 4:13 PM EDT): Well-controlled. Assessment & Plan (03/10/2024 1:50 PM EST): He is on high-dose statin. 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 ([facility] V24) (Primary Dx); Nonrheumatic aortic valve stenosis; Primary hypertension; Hyperlipidemia, unspecified hyperlipidemia type 09/30/2024 Telephone [facility] Cardiology [facility] [address] [place] [address] Reggie Cole MD 09/17/2024 9:00 AM EDT Ancillary Procedure [facility] [address] [place] [address] SOB (shortness of breath) 09/03/2024 9:49 AM EDT - 09/03/2024 11:59 PM EDT Hospital Encounter [facility] MRI [address] [place] [address] Dizziness and giddiness Discharge Disposition: Home or Self Care 08/26/2024 10:50 AM EDT Office Visit [facility] [address] [place] [address] Reggie Cole MD Nonrheumatic aortic valve stenosis [...] Mass Index 30.24 09/30/2024 1:53 PM EDT Plan of Treatment Health Maintenance Due Date Last Done Comments DTaP,Tdap,and Td Vaccines (1 - Tdap) 1959 Pneumococcal Vaccine: 50+ Years (1 of 2 - PCV) 1961 RSV Immunization Adult Patients (1 - 1-dose [...] Procedure Name Priority Date/Time Associated Diagnosis Comments NM LEXISCAN STRESS TEST W/ MYOCARDIAL PERFUSION Routine 09/17/2024 11:16 AM EDT SOB (shortness of breath) MR BRAIN WO AND W CONTRAST Routine 09/03/2024 11:46 AM EDT Dizziness and giddiness ECG 12-LEAD Routine 08/26/2024 10:50 AM EDT Nonrheumatic aortic valve stenosis from Last 3 Months Results * NM LEXISCAN STRESS TEST W/ MYOCARDIAL PERFUSION (09/17/2024 11:16 AM EDT) Exercise/inject ion duration (min) 0 CV PACS STRESS Exercise/inject ion duration (sec) 43 CV PACS STRESS Peak SBP 142 mmHg CV PACS STRESS Peak DBP 81 mmHg CV PACS STRESS Peak HR 93 bpm CV PACS STRESS Baseline HR 68 bpm CV PACS STRESS Baseline SBP 142 mmHg CV PACS STRESS Baseline DBP 81 mmHg CV PACS STRESS Estimated workload 1.0 METS CV PACS STRESS Percent HR 67 % CV PACS STRESS Rate Pressure Product 13,206.0 mmHg*bpm CV PACS STRESS Target HR [address] CV PACS STRESS [address] Depression (mm) 0 mm CV PACS STRESS TID 1.11 CV PACS STRESS Nuc Stress EF 74 % CV PAC S STRESS Nuc Rest EF 71 % CV PACS STRESS BSA 2.07 m2 CV PACS STRESS Anatomical Region Laterality Modality Nuclear Medicine 09/17/2024 9:53 AM EDT 09/17/2024 10:07 AM EDT Impressions 09/18/2024 8:07 AM EDT Abnormal Regadenoson stress test with nuclear imaging. No chest pain or EKG changes consistent with ischemia. Nuclear imaging revealed a medium, moderate, largely reversible perfusion defect of the mid-distal anterior, anterior-apical, mid anteroseptal and apical septal garcia consistent with ischemia. There is a normal TID ratio. Gated SPECT imaging was performed and revealed an LVEF of 71 %. Narrative 09/18/2024 8:07 AM EDT Stress Findings A pharmacological stress test was performed using regadenoson, 0.4 mg IV over 10-15 seconds, followed by radiopharmacological injection 10 seconds post infusion. Total stress time was 0 min and 43 sec. The patient reached the end of the protocol. Blood pressure demonstrated a normal response. Heart rate demonstrated a normal response. The patient reported no symptoms during the stress test. ECG 84-year-old male with history of aortic stenosis, hypertension, hyperlipidemia and COPD. Patient presents today for nuclear stress test to evaluate shortness of breath symptoms. The ECG shows normal sinus rhythm. There were no arrhythmias during stress. There is no ST segment changes during stress. There were no arrhythmias during recovery. There were no ST changes. Nondiagnostic in the setting of a pharmacological study. Nuclear Study Quality Study technique: MPI, SPECT, multi, rest and stress, 1 day and gated. Overall image quality is good. CT attenuation correction was utilized. No radiopharmaceutical dose was extravasated. The time from injection to rest imaging is 40 mins. The time from injection to stress imaging is 45 mins. Stress Function Comments Stress ejection fraction is 74%. Rest Function Comments Resting ejection fraction was 71%. Reggie Cole MD CV STRESS PROCEDURES Final Resul t * MR Brain wo and w Contrast (09/03/2024 11:46 AM EDT) Anatomical Region Laterality Modality Head and Neck Magnetic Resonan ce 09/03/2024 2:20 PM EDT Impressions 09/03/2024 3:32 PM EDT No acute findings or abnormal intracranial enhancement. Moderate chronic small vessel ischemic change throughout the supratentorial and pontine white matter. Mild diffuse cerebral volume loss. -------- FINAL REPORT -------- Dictated By: SARAVANAN AGUDELO Dictated Date: 09/03/2024 14:20 ET Assigned Physician: SARAVANAN AGUDELO Reviewed and Electronically Signed By: SARAVANAN AGUDELO Signed Date: 09/03/2024 15:32 ET Workstation ID: [id number] Transcribed By: Self Edit Transcribed Date: 09/03/2024 [...] normal limits. Calvarium is normal. Procedure Note Saravanan Agudelo MD - 09/03/2024 PROCEDURE: Brain MRI [...] loss. -------- FINAL REPORT -------- Dictated By: SARAVANAN AGUDELO Dictated Date: 09/03/2024 14:20 ET Assigned Physician: SARAVANAN AGUDELO Reviewed and Electronically Signed By: SRAAVANAN AGUDELO Signed Date: 09/03/2024 15:32 ET Workstation ID: [id number] Transcribed By: Self Edit Transcribed Date: 09/03/2024 14:20 ET Kelsey Burch DO [facility] MRI PROCEDURE S Final Result * ECG 12 lead (08/26/2024 10:50 AM EDT) Ventricular Rate ECG 73 BPM GEMUSE Atrial Rate 73 BPM GEMUSE P-R Interval 186 ms GEMUSE QRS Duration 106 ms GEMUSE Q-T Interval 398 ms GEMUSE QTc 438 ms GEMUSE P Wave Carver 74 degrees GEMUSE R Carver -16 degrees GEMUSE T Carver 83 degrees GEMUSE ECG Interpretation Normal sinus rhythm Non-specific intra-ventric ular conduction block No previous ECGs available Confirmed by Sebas COLE YUFENG ([id number]) on 08/26/2024 11:28:01 AM GEMUSE 08/26/2024 10:5 0 AM EDT 08/26/2024 11:28 AM EDT us Reggie Cole MD ECG ORDERABLES Final Result GEMUSE from Last 3 Months Insurance MEDICARE [facility] Care Teams Cat Skinner Relationship Specialty Start Date End Date Kelsey Burch DO [facility] [address] [place] [address] PCP - General Internal Medicine 02/28/24
--- OUTSIDE RECORDS SUMMARY | 2024-10-01 11:52 | XMS_ITS | Encounter Summary ---
Author Organization [facility] Address [address] [facility] [address] [place] [address] Phone Care Team Providers Care Safety Equipment Testing Specialist Name Role Phone Grant Coronado DO Primary Care Provider [phone] Encounter Details Date Type Department Care Team (Late st Contact Info) Description 08/11/2019 Procedure Pass BWF Periop 6th floor [address] [place] [address] Social History Tobacco Use Types Packs/Day Years Used Date Smoking Tobacco: Former Cigarettes 1 20 0 02/21/1960 - 02/21/1980 Smokeless Tobacco: Never Comments:Quit 22 years ago p er pt Alcohol Use Standard Drinks/Week Comments Yes 5 (1 standard drink = 0.6 oz pur e alcohol) Sex and Gender Information Value Date Recorded Sex Assigned at Male 08/02/2019 8:38 AM EDT Legal Sex Male 8:52 AM EST Gender Identity Male 08/02/2019 8:38 AM EDT Sexual Orientation Straight 08/02/2019 8: 38 AM EDT documented as of this encounter Plan of Treatment Not on file documented as of this encounter Visit Diagnoses Not on filedocumented in this encounter Care Teams Safety Equipment Testing Specialist Relationship Specialty Start Date End Date Grant Coronado DO [address] [place] [address] PCP - General Internal Medicine 08/07/19 documented as of this encounter Additional Source Comments The information contained in this document represents components of the legal health record. It is not the complete legal health record.[facility]
--- OUTSIDE RECORDS SUMMARY | 2024-10-01 11:52 | XMS_ITS | Encounter Summary ---
Author Organization [facility] Address [address] [place] [address] Care Team Providers Care Recruitment Assistant Name Role Phone HirocornelKelsey Becerra DO Primary Care Pro vider Reason for Visit * Reason Onset Date Comments flying 09/30/2024 Encounter Details Date Type Department Care Team (Late st Contact Info) Description 09/30/2024 Telephone [facility] [address] [facility] [address] [place] [address] Reggie Cole MD [address] [place] [address] [place] [address] Social History Tobacco Use Types Packs/Day Years [...] as of this encounter Progress Notes * N'Isabela Mock - 09/30/2024 8:36 AM EDT Patients Cheryl states they are supposed to go on vacation next until 10/16/24. Is it ok for him to fly and wait for his appointment on 10/17/24 with . documented in this encounter Plan of Treatment Not on file documented as of this encounter Visit Diagnoses Not on filedocumented in this encounter Care Teams Recruitment Assistant Relationship Specialty Start Date End Date Kelsey Burch DO [address] [id number] PCP - General Internal Medicine 02/28/24 documented as of this encounter
== END 2024-10-01 11:46 | disposition home or self-care (01) ==
LOC: HO.HOS 10:59
PROVIDERS: Visit Provider Orthopaedic Surgery
DX: M25.561 Pain in right knee (principal); M17.11 Unilateral primary osteoarthritis, right knee
CPT/HCPCS: 99213; G2211

== ENCOUNTER → 2024-10-01 10:58 | Outpatient (BNVA) | payer MEDICARE, SELFPAY | PROVIDERS: Visit Provider Orthopaedic Surgery | DX: M25.561 Pain in right knee (principal); M17.11 Unilateral primary osteoarthritis, right knee | CPT/HCPCS: 99212 ==

== ENCOUNTER 2024-12-30 12:45 | Outpatient (AMB) | payer MEDICARE, SELFPAY ==
--- OUTSIDE RECORDS SUMMARY | 2024-12-06 04:00 | XMS_ITS ---
Author Organization [facility] Address [address] [place] [address] Care Team Providers Care Family Dinner Service Specialist Name Role Phone Lee Flores Primary Care Provider Migration, Provider Unavailable Unavailable REASON FOR VISIT EMR-Ryder Encounters Encounter Location Date Provider [facility] [address] [place] [address] 12/06/2024 Provider Migration Plan Of Treatment Medication Medication Name Sig Start Date Stop Date Notes Mirapex 0.125 mg Tab 0.125 mg TABLET take 1 tablet (0.125MG) by oral route 3 times every day ORAL 01/07/2013 09/04/2022 taking as directed *Reorder from [employer] for eRx and Interaction Alerts* Aspirin 325 MG Tablet Oral 11/11/2008 03/11/2012 GLUC QUINTANILLA/CHONDROITIN SULFATE A 250 mg-200 mg CAPSULE 1 po daily ORAL 02/06/2012 09/04/2022 taking as direct ed *Reorder from [employer] for eRx and Interaction Alerts* glucosamine HCl/chondroitin quintanilla 250 mg-200 mg CAPSULE ORAL 11/11/2008 04/11/2012 *Reorder from [facility] for eRx and Interaction Alerts* Amitriptyline HCl 25 MG Tablet take 2 Tablet (50MG) by oral route every day at bedtime Oral 12/21/2011 12/25/2011 MiraLax 17 gram/dose Powder Take 255 grams per oral intake per colonoscopy prep sheet Oral 04/23/2012 11/13/2012 *Pick strength-form from [facility] for eRX* Simvastatin 80 MG Tablet take 1 tablet (80MG) by oral route every day in the evening Oral 01/07/2013 09/04/2022 taking as directed Zetia 10 MG Tablet take 1 tablet (10MG) by ORAL route every day Oral 01/07/2013 09/04/2022 taking as directed Niacin 125 mg CAPSULE ER ORAL 11/11/2008 06/28/2009 *Pick strength-f orm from [facility] for eRX* Nortriptyline HCl 50 MG Capsule take 1 capsule (50MG) by oral route at bedtime Oral 12/25/2011 04/11/2012 Bisoprolol Fumarate 5 MG Tablet take 1 tablet (5MG) by oral route every day Oral 06/18/2013 09/04/2022 taking as directed Cialis 20 MG Tablet take 1 tablet by oral route every day Oral 11/13/2012 09/04/2022 taking as directed Fish Oil 1200 MG Capsule Oral 11/11/2008 03/11/2012 Niaspan Extended-Release 1,000 mg 24 hr Tab 1,000 mg TAB ER 24H take 1 tablet (1000MG) by oral route every day at bedtime after a low-fat snack ORAL 08/16/2012 09/04/2022 taking as directed *[facility] from [facility] for eRx and Interaction Alerts* Niaspan Extended-Release 500 mg 24 hr Tab 500 mg TAB ER 24H take 1 tablet (500MG) by ORAL route every day at bedtime after a low-fat snack ORAL 06/12/2011 06/13/2011 *Reorder from [facility] for eRx and Interaction Alerts* Progress Notes * Say MIMSDOB:[birth year] (84 yo M)Acc No.[id number]:12/06/2024 Patient: Glenny POONAMSay :1940 A ge:84 Y S ex:Male Address:[address] [place] [address] [place] [address] * Refills Stop Amitriptyline HCl Tablet, 25 MG, Oral, 30 , take 1 tablet (25MG) by oral route every day at bedtime Stop Amitriptyline HCl Tablet, 25 MG, Oral, 60 , take 1 tablet (25MG) by oral route every day at bedtime Stop Amitriptyline HCl Tablet, 25 MG, Oral, 60 , take 2 Tablet (50MG) by oral route every day at bedtime Stop Amitriptyline HCl Tablet, 25 MG, Oral, 60 , take 2 Tablet (50MG) by oral route every day at bedtime Stop Amitriptyline HCl Tablet, 25 MG, Oral, 60 , take 2 Tablet (50MG) by oral route every day at bedtime Stop Aspirin Tablet, 325 MG, Oral, 1 Stop Bisoprolol Fumarate Tablet, 5 MG, Oral, 30 , take 1 tablet (5MG) by oral route every day Stop Bisoprolol Fumarate Tablet, 5 MG, Oral, 30 , take 1 tablet (5MG) by oral route every day Stop Bisoprolol Fumarate Tablet, 5 MG, Oral, 90, take 1 tablet (5MG) by oral route every day Stop Bisoprolol Fumarate Tablet, 5 MG, Oral, 90, take 1 tablet (5MG) by oral route every day Stop Bisoprolol Fumarate Tablet, 5 MG, Oral, 90, take 1 tablet (5MG) by oral route every day Stop Cialis Tablet, 20 MG, Oral, 12, take 1 tablet by oral route every day Stop Fish Oil Capsule, 1200 MG, Oral, 1 Stop MiraLax Powder, 17 gram/dose, Oral, 255, Take 255 grams per oral intake per colonoscopy prep sheet Stop Niacin CAPSULE ER, 125 mg, ORAL, 1 Stop Nortriptyline HCl Capsule, 50 MG, Oral, 30 , take 1 capsule (50MG) by oral route at bedtime Stop Simvastatin Tablet, 80 MG, Oral, 1 Stop Simvastatin Tablet, 80 MG, Oral, 90 , take 1 tablet (80MG) by oral route every day in the evening Stop Simvastatin Tablet, 80 MG, Oral, 90, take 1 tablet (80MG) by oral route every day in the evening Stop Simvastatin Tablet, 80 MG, Oral, 90, take 1 tablet (80MG) by oral route every day in the evening Stop Zetia Tablet, 10 MG, Oral, take 1 tablet (10MG) by ORAL route every day Stop Zetia Tablet, 10 MG, Oral, 30 , take 1 tablet (10MG) by ORAL route every day Stop Zetia Tablet, 10 MG, Oral, 30 , take 1 tablet (10MG) by ORAL route every day Stop Zetia Tablet, 10 MG, Oral, 90, take 1 tablet (10MG) by ORAL route every day Stop Zetia Tablet, 10 MG, Oral, 90, take 1 tablet (10MG) by ORAL route every day Stop GLUC QUINTANILLA/CHONDROITIN SULFATE A CAPSULE, 250 mg-200 mg, ORAL, 1 po daily Stop glucosamine HCl/chondroitin quintanilla CAPSULE, 250 mg-200 mg, ORAL, 1 Stop Mirapex 0.125 mg Tab TABLET, 0.125 mg, ORAL, take 1 tablet (0.125MG) by oral route 3 times every day Stop Mirapex 0.125 mg Tab TABLET, 0.125 mg, ORAL, 90 , take 1 tablet (0.125MG) by oral route 3 times every day Stop Mirapex 0.125 mg Tab TABLET, 0.125 mg, ORAL, 90 , take 1 tablet (0.125MG) by oral route 3 times every day Stop Mirapex 0.125 mg Tab TABLET, 0.125 mg, ORAL, 90, take 1 tablet (0.125MG) by oral route 3 times every day Stop Mirapex 0.125 mg Tab TABLET, 0.125 mg, ORAL, 270, take 1 tablet (0.125MG) by oral route 3 times every day Stop Niaspan Extended-Release 1,000 mg 24 hr Tab TAB ER 24H, 1,000 mg, ORAL, 30 , take 1 tablet (1000MG) by oral route every day at bedtime after a low-fat snack Stop Niaspan Extended-Release 1,000 mg 24 hr Tab TAB ER 24H, 1,000 mg, ORAL, 30, take 1 tablet (1000MG) by oral route every day at bedtime after a low-fat snack Stop Niaspan Extended-Release 1,000 mg 24 hr Tab TAB ER 24H, 1,000 mg, ORAL, 90, take 1 tablet (1000MG) by oral route every day at bedtime after a low-fat snack Stop Niaspan Extended-Release 500 mg 24 hr Tab TAB ER 24H, 500 mg, ORAL, take 1 tablet (500MG) by ORAL route every day at bedtime after a low-fat snack Stop Niaspan Extended-Release 500 mg 24 hr Tab TAB ER 24H, 500 mg, ORAL, 30 , take 1 tablet (500MG) by ORAL route every day at bedtime after a low-fat snack Subjective: * Chief Complaints: * E MR-Ryder * * Date:
--- OUTSIDE RECORDS SUMMARY | 2024-12-07 04:00 | XMS_ITS ---
Author Organization [facility] Address [address] [facility] [address] [place] [address] Care Team Providers Care Professional Services Specialist Name Role Phone Lee Flores Primary Care Provider [phone] Migration, Provider Unavailable Unavailable Allergies Allergen (clinical drug ingredient) Drug/Non Drug Allergy documented on EMR Reaction Allergy Type Onset Date Status atorvastatin Atorvastatin Calcium abdominal discomfort Lipitor Drug Allergy 10/14/2010 Active REASON FOR VISIT EMR-Ryder Medications Medication SIG (Take, Route, Frequency, Duration) Notes Start Date End Date Status multivitamin Cap CAPSULE ORAL taking as directed *Reorder from [facility] for eRx and Interaction Alerts* 11/11/2008 Active Rosuvastatin Calcium 40 MG Tablet take 1 tablet by oral route every day Oral 09/04/2022 Active Lisinopril 40 MG Tablet take 1 tablet by oral route every day Oral 09/04/2022 Active Latanoprost 0.005 % Solution instill 1 drop by ophthalmic route every day into affected eye(s) in the evening Ophthalmic 09/04/2022 Active Aspirin 325 MG Tablet take 1 tablet (325MG) by oral route every day Oral taking as directed 01/06/2012 Active amLODIPine Besylate 10 MG Tablet take 1 tablet by oral route every day Oral 09/04/2022 Active Social History Social History Additional Details Category Social Info Options Details Migrated Social History Migrated Social History Have you used tobacco: R Encounters Encounter Location Date Provider [facility] [address] [place] [address] 12/07/2024 Provider Migration Plan Of Treatment No Information Progress Notes * Say MIMSDOB:[birth year] (84 yo M)Acc No.[id number]:12/07/2024 Patient: Say STEVENSON :1940 A ge:84 Y S ex:Male Address:[facility] [place] [address] Subjective: * Chief Complaints: * E MR-Ryder * Medical History: Med_system:cardiovascular, Disease : Hyperlipidemia Problems: Impotence of organic origin, Added Date: 07/14/2013, Onset Date: 11/13/2012:Active Problems: Insomnia, Added Date: 07/14/2013, Onset Date: 12/09/2010:Active Problems: Raised prostate specific antigen, Added Date: 07/14/2013, Onset Date: 12/15/2008:Active Med_system:genitourinary, Disease : Elevated PSA * Business Info Consultant History: M enopausal Symptoms: N ight sweats: N o. A dditional Symptoms: D ecreased libido: N o, Urinary incontinence: N o. * Surgical History: Sx_Procedure : Hernia Repair Sx_Procedure : Neck Surgery Med_system:musculoskeletal, Sx_Procedure : Surgery on left knee ligament 1996 Med_system:genitourinary, Disease : Abnormal PHOEBE, Sx_Procedure : Prostate biopsy 2000 Med_system:genitourinary, Disease : Elevated PSA, Sx_Procedure : Prostate biopsy 2005 * Family History: F ather: malignant neoplasm of urinary bladder. M igrated Family History: grandfather: Cancer, unknown. M other: Cirrhosis. * Social History: M igrated Social History: M igrated Social History: Have you used tobacco: R. * Medications: T akingamLODIPine Besylate 10 MG Tablet take 1 tablet by oral route every day Oral Aspirin 325 MG Tablet take 1 tablet (325MG) by oral route every day Oral , Notes to Pharmacist: taking as directedLatanoprost 0.005 % Solution instill 1 drop by ophthalmic route every day into affected eye(s) in the evening Ophthalmic Lisinopril 40 MG Tablet take 1 tablet by oral route every day Oral Rosuvastatin Calcium 40 MG Tablet take 1 tablet by oral route every day Oral multivitamin Cap CAPSULE ORAL , Notes to Pharmacist: taking as directed *Reorder from [facility] for eRx and Interaction Alerts*Taking amLODIPine Besylate 10 MG Tablet take 1 tablet by oral route every day Oral Taking Aspirin 325 MG Tablet take 1 tablet (325MG) by oral route every day Oral , Notes to Pharmacist: taking as directedTaking Latanoprost 0.005 % Solution instill 1 drop by ophthalmic route every day into affected eye(s) in the evening Ophthalmic Taking Lisinopril 40 MG Tablet take 1 tablet by oral route every day Oral Taking Rosuvastatin Calcium 40 MG Tablet take 1 tablet by oral route every day Oral Taking multivitamin Cap CAPSULE ORAL , Notes to Pharmacist: taking as directed *Reorder from [facility] for eRx and Interaction Alerts* * Allergies: A torvastatin Calcium: abdominal discomfort Lipitor - Allergy - Onset Date 10/14/2010 * * Date:
--- NOTE | 2024-12-30 13:22 | A.OFFVIS_ITS ---
Vital Signs 12/30/24 13:32 Height 5 ft 8 in Weight 195 lb BMI 29.6 Intake Visit Reasons: Inj- Repeat Right knee Durolane Intake Note: Say is a 84 year old male who presents with complaints of right knee pain. He describes his pain as sharp in nature. He has tried cortisone injections which gave him minimal relief. He has also had Durolane injections which gave him good relief. He has failed the last 3 months of conservative treatment. He wishes to hold off on surgery if at all possible. Allergies atorvastatin Allergy (Mild, Verified 12/30/24 13:31) Abdominal Pain calcium Allergy (Mild, Verified 12/30/24 13:31) Abdominal Pain nortriptyline Allergy (Mild, Verified 12/30/24 13:31) Insomnia rosuvastatin Allergy (Mild, Verified 12/30/24 13:31) Abdominal Pain Medication List - Last Reconciled 12/31/24 by Marcos Galdamez MD acetaminophen (Tylenol) 325 mg PO QID PRN amlodipine 10 mg PO DAILY aspirin (Rommel Low Dose Aspirin) 81 mg PO DAILY clopidogrel 75 mg PO DAILY latanoprost 0.005% drps ophthalmic (eye) lisinopril 40 mg PO DAILY rosuvastatin 40 mg PO DAILY sertraline 50 mg PO DAILY [facility] Medical History Coarse tremors Restless legs syndrome (RLS) RLS (restless legs syndrome) Glaucoma Benign colon polyp Herpes zoster History of varicella as a child High blood pressure High cholesterol Surgical History History of melanoma excision H/O inguinal hernia repair H/O prostate biopsy History of cervical spinal surgery Hx of colonoscopy Hx of left knee surgery (~2018) Social History Patient Tobacco Use Status: Never used Tobacco Current occupational status: retired Physical Exam Vital Signs: BMI result Body Mass Index 29.6 Extrem Other: Right knee examination shows a minimal effusion, palpable crepitus with range of motion, pain with range of motion, no instability Office Procedures AMB Joint Injection/Aspiration Joint Injection/Aspiration Primary Site: Right Knee Prep: site was prepped using aseptic technique Injected: Durolane, with 3 mL of and 1% plain Lidocaine Procedure: The patient tolerated the procedure well Coding 34833 - Large joint Procedure code (CPT) selection complete Results Reviewed Results Reviewed: X-rays of the patient's right knee taken previously show joint space narrowing, subchondral sclerosis, no acute bony abnormalities Assessment & Plan Assessment & Plan (1) Osteoarthritis of right knee: Code(s): M17.11 - Unilateral primary osteoarthritis, right knee Category: Medical Plan Mr. Schulz presents with right knee pain due to osteoarthritis. The risks and benefits of a right knee Durolane viscosupplementation injection were discussed at length with the patient. The patient wished to proceed. He tolerated the injection well. He will continue with his home exercise program. He will contact me prior to his follow-up appointment in 3 months should any questions or concerns arise. Feel free to call me at any time should questions regarding his orthopedic management arise. I spent 20 minutes in reviewing the patient's records and imaging studies, seeing the patient and documenting in the medical record. Orders: Orders AMB Joint Injection/Aspiration 12/30/24 M17.11 - Unilateral primary osteoarthritis, right knee Coding Level of Care Code Est Pt Level 3 (08418) Complex visit Add On G2211 Diagnoses Osteoarthritis of right knee M17.11 CPT Codes Coding - 00349 Large joint: 44856 - Large joint ([id number])
[2024-12-30 13:32] VITALS: BMI 29.6
--- OUTSIDE RECORDS SUMMARY | 2024-12-30 16:24 | XMS_ITS | Encounter Summary ---
Author Organization [facility] Address [address] [place] [address] Phone Care Team Providers Care Call Center Rn Name Role Phone Unknown, Unknown Primary Care Provider Grant Lyn DO Primary Care Provider [phone] Encounter Details Date Type Department Care Team (Late st Contact Info) Description 07/09/2019 Procedure Pass BWF Periop 6th floor [address] [place] [address] Social History Tobacco Use Types Packs/Day Years [...] on filedocumented in this encounter Care Teams Call Center Rn Relationship Specialty Start Date End Date Unknown, Unknown, PCP - General 04/29/19 08/06/19 Grant Coronado DO [address] [place] [address] PCP - General Internal Medicine 08/07/19 documented as of this encounter Additional Source Comments The information contained in this document represents components of the legal health record. It is not the complete legal health record.[facility]
--- OUTSIDE RECORDS SUMMARY | 2024-12-30 16:24 | XMS_ITS | Encounter Summary ---
Author Organization [facility] Address [address] [facility] [place] [address] [place] [address] Phone Care Team Providers Care Community Arts Officer Name Role Phone Grant Coronado DO Primary Care Provider [phone] Encounter Details Date Type Department Care Team (Late st Contact Info) Description 08/11/2019 Procedure Pass BWF Periop 6th floor [address] [place] [address] Social History Tobacco Use Types Packs/Day Years [...] on filedocumented in this encounter Care Teams Community Arts Officer Relationship Specialty Start Date End Date Grant Coronado DO [address] [place] [id number] PCP - General Internal Medicine 08/07/19 documented as of this encounter Additional Source Comments The information contained in this document represents components of the legal health record. It is not the complete legal health record.[facility]
--- OUTSIDE RECORDS SUMMARY | 2024-12-30 16:25 | XMS_ITS | Clinical Summary ---
Author Organization [facility] [employer] [facility] Address [address] [place] [address] Phone Care Team Providers Care Animal Care Worker Name Role Phone Kelsey Burch DO Primary Care Pro vider Allergies No known active allergies Medications sertraline (ZOLOFT) 50 mg tablet Take 1 tablet (50 mg total) by mouth 1 (one) time each day. Active lisinopril (PRINIVIL,ZESTRIL) 40 mg tablet Take 1 tablet (40 mg total) by mouth 1 (one) time each day. Active amLODIPine (NORVASC) 10 mg tablet Take by mouth 1 (one) time each day. Active rosuvastatin (CRESTOR) 40 mg tablet Take 1 tablet (40 mg total) by mouth 1 (one) time each day. Active latanoprost (XALATAN) 0.005 % ophthalmic solution Administer 1 drop into both eyes at bedtime. at bedtime 07/26/19 25 Active aspirin 81 mg EC tablet Take 1 tablet (81 mg total) by mouth 1 (one) time each day. Active nitroglycerin (NITROSTAT) 0.[address] 1 tablet (0.4 mg total) under the tongue every 5 (five) minutes if needed for chest pain. May repeat dose every 5 minutes for up to 3 doses total. 25 tablet 10/01/19 25 026 Active clopidogreL (PLAVIX) 75 mg tablet Take 1 tablet (75 mg total) by mouth 1 (one) time each day. 10/12/19 25 Active evolocumab (Repatha SureClick) 140 mg/mL pen injector injectionIndicatio ns:Coronary artery disease of [place] artery of [place] heart with stable angina pectoris ([facility] V24),Hyperlipidemi a, unspecified hyperlipidemia type Inject 1 mL (140 mg total) under the skin every 14 (fourteen) days. 6 mL 3 11/08/19 25 Active budesonide-formote roL (SYMBICORT) 160-4.5 mcg/actuation inhaler Inhale 2 puffs by mouth 2 (two) times a day. Rinse mouth with water after use to reduce aftertaste and incidence of candidiasis. Do not swallow. 10.6 g 11 11/12/19 25 Active albuterol HFA (PROAIR HFA ; PROVENTIL HFA ; VENTOLIN HFA) 90 mcg/actuation inhaler Inhale 2 puffs by mouth every 6 (six) hours if needed for wheezing. 025 Discontin ued(Patie nt Discharge ) Active Problems Problem Noted Date Diagnosed Date Class 1 obesity 12/24/2024 Primary osteoarthritis of left knee 12/24/2024 Chest pressure 11/07/2024 Coronary artery disease of [place] artery of [place] heart with stable angina pectoris ([facility] V24) 09/30/2024 Assessment & Plan (11/07/2024 10:08 AM EDT): Cardiac catheterization on 10/10/2024 revealed mild diffuse disease of the LMCA, 90% stenosis in the proximal subsection of the proximal LAD which was heavily calcified, 70% stenosis in the proximal subsection of the mid LAD, 85% stenosis at the ostium of the D1 and 100% stenosis at the ostium of the D3 which is a chronic total occlusion and 40% stenosis at the ostium of the proximal LCx and 100% stenosis at the ostium of the OM1 which is a chronic total occlusion and fills retrogradely. He underwent IVUS guided successful PCI of the proximal LAD using shockwave arthrectomy followed by placement of a drug-eluting stent. He also underwent balloon angioplasty of the ostial D1. He is feeling much better since the procedure. He denies anginal symptoms. He is participating in cardiac rehab. Continue current medical therapy with aspirin, clopidogrel and rosuvastatin. For any chest pain/discomfort, especially if associated with exertion, that lasts longer than 10-15 minutes and does not resolve with rest or sublingual nitroglycerin, patient has been encouraged to seek immediate medical attention by calling 911. Assessment & Plan (09/30/2024 4:13 PM EDT): [...] this. Primary hypertension 03/10/2024 Assessment & Plan (11/07/2024 10:08 AM EDT): Blood pressure is well-controlled in the office today at 118/66. Continue amlodipine and lisinopril as prescribed. Assessment & Plan (09/30/2024 4:13 PM EDT): Well-controlled Assessment & Plan (03/10/2024 1:49 PM EST): Well-controlled. Hyperlipidemia 03/10/2024 Assessment & Plan (11/07/2024 10:13 AM EDT): Last lipid panel reviewed, LDL 133 which is not at goal of less than 70. He has been on rosuvastatin 40 mg daily for many years. Given his coronary artery disease, will initiate Repatha 140 mg every 2 weeks for better control. Will update a fasting lipid panel 8 weeks after starting medication. Continue with efforts to follow a low fat, heart healthy diet, increase exercise and maintain a healthy weight to maximize risk reduction. Assessment & Plan (09/30/2024 4:13 PM EDT): Well-controlled. Assessment & Plan (03/10/2024 1:50 PM EST): He is on high-dose statin. S/P TKR (total knee replacement) using cement, l eft 08/11/2019 Encounters Date Type Department Care Team Description 12/24/2024 9:15 AM EST Office Visit Pulmonology [facility] [address] [phone] Holly Bhatti MD Pulmonary nodule (Primary Dx); Chronic obstructive pulmonary disease, unspecified COPD type (CMS/HCC V24, CMS/HCC V28); Class 1 obesity 12/05/2024 8:32 AM EDT - 12/05/2024 11:59 PM EDT Hospital Encounter [facility] CT Scan [address] [place] [phone] Moderate asthma, unspecified whether complicated, unspecified whether persistent; Obesity (BMI 30-39.9) Discharge Disposition: Home or Self Care 11/12/2024 Telephone Pulmonology [facility] [address] [phone] Bria Hooker [place] 11/11/2024 9:30 AM EDT Office Visit Pulmonology - [place] [address] [place] [phone] Holly Bhatti MD Pulmonary nodule (Primary Dx); Moderate asthma, unspecified whether complicated, unspecified whether persistent; Obesity (BMI 30-39.9); ILD (interstitial lung disease) (CMS/HCC V24, CMS/HCC V28) 11/07/2024 9:40 AM EDT Office Visit [facility] [address] [place] [phone] Di Young NP Coronary artery disease of [place] artery of [place] heart with stable angina pectoris ([facility] V24) (Primary Dx); Primary hypertension; Hyperlipidemia, unspecified hyperlipidemia type 10/13/2024 Telephone [facility] - [address] [place] [address] Reggie Cole MD 10/01/2024 Telephone [facility] - [address] [place] [address] Reggie Cole MD 09/30/2024 2:00 PM EDT Office Visit [facility] - [address] [place] [address] Reggie Cole MD Coronary artery disease of [place] artery of [place] heart with stable angina pectoris ([facility] V24) (Primary Dx); Nonrheumatic aortic valve stenosis; Primary hypertension; Hyperlipidemia, unspecified hyperlipidemia type 09/30/2024 Telephone [facility] - [address] [place] [address] Reggie Cole MD from Last 3 Months Surgical History Surgery Date Site/Laterality Comments CARDIAC CATH DONE ON 10/10/2024 AT [facility] INDICATIONS: Medical History Medical History Date Comments Abnormal stress test Hypertension Hyperlipidemia COPD (chronic obstructive pulmonary disease) (CM S/HCC V24, CMS/HCC V28) Social History Tobacco Use Types Packs/Day Years [...] Sign Reading Time Taken Comments Blood Pressure 117/57 12/24/2024 9:08 AM EST Pulse 71 12/24/2024 9:08 AM EST Temperature 36.1 C (97 F) 12/24/2024 9:08 AM EST Respiratory Rate 20 12/24/2024 9:08 AM EST Oxygen Saturation 97% 12/24/2024 9:08 AM EST Inhaled Oxygen Concentration - - Weight 87.5 kg (193 lb) 12/24/2024 9:08 AM EST Height 172.7 cm (5' 8 ) 12/24/2024 9:08 AM EST Body Mass Index 29.35 12/24/2024 9:08 AM EST Plan of Treatment Upcoming Encounters Date Type Department Care Team (Late st Contact Info) Description 03/26/2025 9:15 AM EST Office Visit Pulmonology - [address] [place] [address] Holly Bhatti MD [address] [place] [phone] Health Maintenance Due Date Last Done Comments DTaP,Tdap,and Td Vaccines (1 - Tdap) 1959 Pneumococcal Vaccine: 50+ Years (1 of 2 - PCV) 1961 RSV Immunization Adult Patients (1 - 1-dose 75+ series) 2017 Cholesterol Screening (Lipid Panel) 01/08/2022 Falls Risk Assessment 01/08/2022 Medicare Annual Wellness Visit 01/08/2022 Social Influencers of Health Screening 01/08/2022 Depression Screening 02/06/2024 Hypertension/CHF/CAD Annual BMP Blood Test 03/10/2024 COVID-19 Vaccine (4 - 2024-2 6 season) 2024 03/01/2021, 04/04/2020, 03/13/2020 Influenza Vaccine (#1) 2024 3, 12/07/2020 Zoster [...] Procedure Name Priority Date/Time Associated Diagnosis Comments CT CHEST WO CONTRAST Routine 12/05/2024 9:02 AM EDT Moderate asthma, unspecified whether complicated, unspecified whether persistent Obesity (BMI 30-39.9) ECG 12-LEAD Routine 11/07/2024 10:14 AM EDT Coronary artery disease of [place] artery of [place] heart with stable angina pectoris (CMS/[facility] V24) from Last 3 Months Results * CT Chest wo Contrast (12/05/2024 9:02 AM EDT) Anatomical Region Laterality Modality Body Computed Tomogra phy 12/10/2024 7:49 AM EST Impressions 12/10/2024 8:06 AM EST 1. Minimal paraseptal emphysema. Mild reticular lung base opacities without honeycomb formation 2. Localized pleural thickening or nodule posterolateral right upper chest. 3. 0.7 cm groundglass opacity in the right upper lobe. 4. Recommend short interval follow-up CT 5. Extensive calcification in the region of the aortic valve. -------- FINAL REPORT -------- Dictated By: Woodrow Dawson Dictated Date: 12/10/2024 07:49 ET Assigned Physician: Woodrow Dawson Reviewed and Electronically Signed By: Woodrow Dawson Signed Date: 12/10/2024 08:06 ET Workstation ID: [id number] Transcribed By: Self Edit Transcribed Date: 12/10/2024 07:49 ET Narrative 12/10/2024 8:06 AM EST EXAMINATION: CT CHEST WITHOUT CONTRAST CLINICAL INFORMATION: Dyspnea. COMPARISON: None TECHNIQUE: Multidetector CT. Examination of the chest. Examination of the chest without IV contrast. Reformatting in the coronal and sagittal planes. DLP: 901 mGy-cm Dose optimization was performed including the use of low-dose iterative reconstruction technique with automatic exposure control based on patient size. Type of contrast: None Volume of IV contrast: None Volume of contrast discarded: 0 mL FINDINGS: LUNG: No suspicious abnormality of the trachea or mainstem bronchi. There is no bronchiectasis. There is no generalized thickening of the interlobular septa. There is no honeycomb formation. There are some peripheral reticular opacities and some possible bronchiolectasis in the extreme posterior costophrenic sulci. There are a few scattered micronodules measuring less than 0.4 cm. There is minimal paraseptal emphysema. There is a pleural associated area of nodule or pleural thickening posterolateral right upper chest (-1.5 x 0.6 cm). There is a 0.7 cm groundglass opacity in the periphery of the posterolateral right upper lobe (). MEDIASTINUM: There are no enlarged mediastinal or hilar lymph nodes. No suspicious abnormality of the esophagus CARDIAC: There is no pericardial fluid. There is extensive calcification in the region of the aortic valve. CORONARY CALCIFICATION: There are marked coronary calcifications. VASCULAR: There is no thoracic aortic aneurysm. The main pulmonary artery is normal caliber. PLEURA: There is no pleural fluid or pneumothorax AXILLA/CHEST WALL: There are no enlarged axillary lymph nodes. No chest wall mass demonstrated VISUALIZED UPPER ABDOMEN: No suspicious abnormality on limited assessment of the visualized upper abdomen. Sharply circumscribed fluid attenuating 8.1 cm mass in the medial upper right kidney consistent with a benign cyst. MUSCULOSKELETAL: No suspicious focal bony lesion. Lower cervical instrumentation. Procedure Note Woodrow Dawson MD - 12/10/2024 EXAMINATION: CT CHEST WITHOUT CONTRAST CLINICAL INFORMATION: Dyspnea. COMPARISON: None TECHNIQUE: Multidetector CT. Examination of the chest. Examination of the chest without IV contrast. Reformatting in the coronal and sagittal planes. DLP: 901 mGy-cm Dose optimization was performed including the use of low-dose iterativereconstruction technique with automatic exposure control based on patientsize. Type of contrast: None Volume of IV contrast: None Volume of contrast discarded: 0 mL FINDINGS: LUNG: No suspicious abnormality of the trachea or mainstem bronchi. There is no bronchiectasis. There is no generalized thickening of theinterlobular septa. There is no honeycomb formation. There are some peripheral reticular opacities and some possiblebronchiolectasis in the extreme posterior costophrenic sulci. There are a few scattered micronodules measuring less than 0.4 cm. Thereis minimal paraseptal emphysema. There is a pleural associated area of nodule or pleural thickeningposterolateral right upper chest (-1.5 x 0.6 cm). There is a 0.7 cm groundglass opacity in the periphery of theposterolateral right upper lobe (). MEDIASTINUM: There are no enlarged mediastinal or hilar lymph nodes. Nosuspicious abnormality of the esophagus CARDIAC: There is no pericardial fluid. There is extensive calcificationin the region of the aortic valve. CORONARY CALCIFICATION: There are marked coronary calcifications. VASCULAR: There is no thoracic aortic aneurysm. The main pulmonary arteryis normal caliber. PLEURA: There is no pleural fluid or pneumothorax AXILLA/CHEST WALL: There are no enlarged axillary lymph nodes. No chestwall mass demonstrated VISUALIZED UPPER ABDOMEN: No suspicious abnormality on limited assessmentof the visualized upper abdomen. Sharply circumscribed fluid attenuating8.1 cm mass in the medial upper right kidney consistent with a benigncyst. MUSCULOSKELETAL: No suspicious focal bony lesion. Lower cervicalinstrumentation. IMPRESSION: 1. Minimal paraseptal emphysema. Mild reticular lung base opacitieswithout honeycomb formation 2. Localized pleural thickening or nodule posterolateral right upperchest. 3. 0.7 cm groundglass opacity in the right upper lobe. 4. Recommend short interval follow-up CT 5. Extensive calcification in the region of the aortic valve. -------- FINAL REPORT -------- Dictated By: Woodrow Dawson Dictated Date: 12/10/2024 07:49 ET Assigned Physician: Woodrow Dawson Reviewed and Electronically Signed By: Woodrow Dawson Signed Date: 12/10/2024 08:06 ET Workstation ID: [id number] Transcribed By: Self Edit Transcribed Date: 12/10/2024 07:49 ET us Holly Bhatti MD IMG CT PROCEDURES Final Resu lt * ECG 12 lead (11/07/2024 10:14 AM EDT) Ventricular Rate ECG 62 BPM GEMUSE Atrial Rate 62 BPM GEMUSE P-R Interval 192 ms GEMUSE QRS Duration 104 ms GEMUSE Q-T Interval 420 ms GEMUSE QTc 426 ms GEMUSE P Wave [place] 57 degrees GEMUSE R [place] 6 degrees GEMUSE T [place] 74 degrees GEMUSE ECG Interpretation Normal sinus rhythm Non-specific intra-ventricu lar conduction block When compared with ECG of 26-AUG-2024 10:50, No significant change was found Confirmed by Sebas COLE YUFENG ([id number]) on 11/07/2024 2:28:58 PM GEMUSE 11/07/2024 9:34 AM EDT 11/07/2024 2:28 PM EDT us Di Young NP ECG ORDERABLES Edited Result - Final GEMUSE from Last 3 Months Insurance MEDICARE [facility] Care Teams Animal Care Worker Relationship Specialty Start Date End Date Kelsey Burch DO [facility] [address] [place] [phone] PCP - General Internal Medicine 02/28/24
--- OUTSIDE RECORDS SUMMARY | 2024-12-30 16:25 | XMS_ITS | Clinical Summary ---
Author Organization [facility] Address [address] [place] [phone] Phone Care Team Providers Care Awning Hanger Helper Name Role Phone Cliff Grant Peters DO Primary Care Provider + [phone] Allergies No known active allergies Medications rosuvastatin (CRESTOR) 40 MG tablet Take 20 mg by mouth daily. 07/07/19 20 Active lisinopril (PRINIVIL,ZESTRIL) 30 MG tablet Take 30 mg by mouth daily. 07/07/19 20 Active amLODIPine (NORVASC) 10 MG tablet Take 10 mg by mouth daily. 06/07/19 20 Active ferrous sulfate 324 mg (65 mg [place] iron) TbEC Take 324 mg by mouth [...] 08/12/2019, 08/07/2019, 02/18/2019 DEPRESSION SCREENING 11/14/2020 11/15/2019 INFLUENZA VACCINE (#1) 2024 COVID-19 VACCINE (2 6 season) 2024 04/04/2020, 03/13/2020 HEPATITIS A VACCINES Aged Out No long [...] this topic Medical Devices Implanted Type Area Stockroom Associate Device Identifier Shelf Expiration Date Model / Serial / Lot Knee Implant [id number] Patellar Component Resurfacing Danielle Ii 06 - [id number] Implanted:Qty: 1 on 08/11/2019 by Lavell Wadsworth MD at [facility] Left: Knee HOLLAND 03/31/2029 [id number] / / [id number] Knee Insert 6 9mm Size 5 Danielle Ii Polyethylene Cruciate Retaining Cs/1bx/1ea - [id number] Implanted:Qty: 1 on 08/11/2019 by Lavell Wadsworth MD at [facility] Left: Knee HOLLAND 01/20/2028 [id number] / / [id number] Knee Baseplate Sz 5 Tibial Legion Ti Nonporous Cemented Male Tapered Lt - [id number] Implanted:Qty: 1 on 08/11/2019 by Lavell Wadsworth MD at [facility] STANDARD Left: Knee HOLLAND 08/13/2027 [id number] / / [id number] Cement Bone 40g Simplex P Demineralized Matrix Radiopaque Void Filler Full Dose Single Vial Bx/10ea - [id number] Implanted:Qty: 2 on 08/11/2019 by Lavell Wadsworth MD at [facility] Left: Knee [employer] 04/04/2021 [id number] / / [id number] Knee Insert Size 5 Femoral Head Legion Cruciate Narrow Left - [id number] Implanted:Qty: 1 on 08/11/2019 by Lavell Wadsworth MD at [facility] Left: Knee HOLLAND 03/11/2029 [id number] / / [id number] Procedures Procedure Name Priority Date/Time Associated Diagnosis Comments BASIC METABOLIC PANEL (BMP) Routine 08/12/2019 7:33 AM EDT from Last 3 Months or Most Recently Relevant to Health Maintenance Results * (ABNORMAL) Basic metabolic panel (08/12/2019 7:33 AM EDT) SODIUM 135(L) 136 - 145 mmol/L [facility] CHLORIDE 98 98 - 107 mmol/L [facility] POTASSIUM 3.8 3.4 - 5.0 mmol/L [facility] CO2 26 22 - 31 mmol/L [facility] BUN 9 6 - 23 mg/dL [facility] CREATININE 0.76 0.50 - 1.20 mg/dL [facility] GLUCOSE 162(H) 70 - 115 mg/dL [facility] CALCIUM 9.0 8.6 - 10.7 mg/dL [facility] EGFR 88 >60 mL/min/1.7 3m2 [facility] Comment:Estimated glomerular filtration rate calculated using the CKD-EPI equation. ANION GAP 11 3 - 15 mmol/L [facility] Blood 08/12/2019 7:33 AM EDT 08/12/2019 7:43 AM EDT us Lavell Wadsworth MD LAB BLOOD BKR ORDERABLES Bebe rosenthal Result [address] [phone] from Last 3 Months or Most Recently Relevant to Health Maintenance Insurance MEDICARE PART A & B [employer] MEDICARE SUPPLEMENT [place] MEDICARE PART A & B [employer] MEDICARE SUPPLEMENT MEDICARE PART A & B [employer] MEDICARE SUPPLEMENT [place] MEDICARE PART A & B [employer] MEDICARE SUPPLEMENT MEDICARE PART A & B [employer] MEDICARE SUPPLEMENT MEDICARE PART A & B [employer] MEDICARE SUPPLEMENT MEDICARE PART A & B [employer] MEDICARE SUPPLEMENT [place] MEDICARE PART A & B [employer] [facility] MEDICARE SUPPLEMENT MEDICARE PART A & B [facility] O MEDICARE SUPPLEMENT Advance Directives For more information, please contact: [phone] (9AM - 5PM Nilam/[facility], Sunday-Sunday) * Full Code (Confirmed) (Latest Code Status on File) Date Activated Date Inactivated Comments 08/12/2019 8:03 AM Question Answer Comments Code Status Confirmed With: Patient * Full Code (Presumed) Date Activated Date Inactivated Comments 08/11/2019 11:46 AM 08/12/2019 8:03 AM * Full Code (Presumed) Date Activated Date Inactivated Comments 08/11/2019 6:03 AM 08/11/2019 11:46 AM Care Teams Awning Hanger Helper Relationship Specialty Start Date End Date Grant Coronado DO [address] [place] [address] PCP - General Internal Medicine 08/07/19 Additional Source Comments The information contained in this document represents components of the legal health record. It is not the complete legal health record.[facility]
--- OUTSIDE RECORDS SUMMARY | 2024-12-30 16:25 | XMS_ITS | Patient Health Record ---
Author Organization [facility] Address [address] [place] [address] Care Team Providers Care Manager Payroll Name Role Phone Lee Flores Primary Care Provider Migration, Provider Unavailable Unavailable Reason For Referral No Information Medications Medication SIG (Take, Route, Frequency, Duration) Notes Start Date End Date Status amLODIPine Besylate 10 MG Tablet take 1 tablet by oral route every day Oral 09/04/2022 Active multivitamin Cap CAPSULE ORAL taking as directed *Reorder from [employer] for eRx and Interaction Alerts* 11/11/2008 Active [...] day Oral taking as directed 01/06/2012 Active Immunizations Vaccine Route Administration Date Status Comme nts Flu vaccine no Preserv 3 and > Unknown 10/14/2010 Administered Influenza, high dose seasonal IM Intramuscular 12/25/2011 Administered Influenza, high dose seasonal IM Intramuscular 11/13/2012 Administered Infuenza, trivalent, recombinant, preservative free IM Intramuscular 10/14/2010 Administered Infuenza, trivalent, recombinant, preservative free IM Intramuscular 12/25/2011 Administered Infuenza, trivalent, recombinant, preservative free IM Intramuscular 11/13/2012 Administered Pneumococcal polysaccharide PPV23 IM Intramuscular 12/25/2011 Administered Social History Social History Additional Details Category Social Info Options Details Migrated Social History Migrated Social History Have you used tobacco: R Problems Problem Type SNOMED Code ICD Code Onset Dates Problem Status W/U Status Risk Notes Problem Mixed hyperlipidemia (354852389) Mixed hyperlipidemia (E78.2) 12/10/19 11 Active confirmed Encounters Encounter Location Date Provider Diagnosis [facility] [address] [place] [address] 12/06/2024 Provider Migration [facility] [address] [place] [address] 12/07/2024 Provider Migration Plan Of Treatment No Information Insurance Providers Payer Name Payer Address Payer Phone Subscriber Number Group Number Insured Name Patient Relationship to Insured Coverage Start Date Coverage End Date [employer] [place] [address] [place] [address] [id number] Say Schulz Self - patient is the insured [facility] [address] [address] [place] [address] [id number] Say Schulz Self - patient is the insured Medical (General) History Surgical History Surgery Date(Month/Year) Sx_Procedure : Hernia Repair Sx_Procedure : Neck Surgery Med_system:musculoskeletal, Sx_Procedure : Surgery on left knee ligament 1996 Med_system:genitourinary, Di sease : Abnormal PHOEBE, Sx_Procedure : Prostate biopsy 2000 Med_system:genitourinary, Di sease : Elevated PSA, Sx_Procedure : Prostate biopsy 2005
== END 2024-12-30 13:55 | disposition home or self-care (01) ==
LOC: HO.HOS 12:46
PROVIDERS: Visit Provider Orthopaedic Surgery
DX: M17.11 Unilateral primary osteoarthritis, right knee (principal)
CPT/HCPCS: 20610; 99213

== ENCOUNTER → 2024-12-30 12:45 | Outpatient (BNVA) | payer MEDICARE, SELFPAY | PROVIDERS: Visit Provider Orthopaedic Surgery | DX: M17.11 Unilateral primary osteoarthritis, right knee (principal); M25.561 Pain in right knee | CPT/HCPCS: 20610; 99212; J2003; J7318 ==